=== PATIENT | female | born 1960 | race Caucasian/White ===

== ENCOUNTER → 2018-05-25 11:24 | Outpatient (CLI) | payer MEDICAID, SELFPAY ==
--- NOTE | 2018-05-25 11:23 | DI.REPORT_ITS ---
SYMPTOM/DIAGNOSIS: SCREENING, Z12.31 BILATERAL SCREENING MAMMOGRAM: Mammograms were interpreted according to the usual protocol including computer analysis with CAD system, tomosynthesis and C view imaging. Comparison is made with exams from 2011 through 2017. The breasts are composed of fatty density tissue, breast density category A. Skin folds are seen related to previous breast reduction. There are no suspicious masses or suspicious microcalcifications. There has been no significant change. IMPRESSION: Category 1-A negative mammogram. Routine screening is recommended. [facility] ASSESSMENT OF FINDINGS: Negative. Category 1. Patient will receive a letter notifying them of these results. BI-RAD category A. The breasts are almost entirely fatty.
== END ==
PROVIDERS: PCP Nurse Practitioner; Visit Provider Nurse Practitioner
DX: Z12.31 Encounter for screening mammogram for malignant neoplasm of breast (principal)
CPT/HCPCS: 77063; 77067

== ENCOUNTER → 2018-06-01 09:21 | Outpatient (CLI) | payer MEDICAID, SELFPAY ==
[2018-06-01 10:18] LABS: Abs Immature Grans 0.01 k/cumm (0.0-0.09); Absolute Basophil Count 0.03 k/cumm (0.0-0.2); Absolute Eosinophil Count 0.12 k/cumm (0.0-0.7); Absolute Lymphocyte Count 1.59 k/cumm (1.2-3.4); Absolute Monocyte Count 0.37 k/cumm (0.11-0.7); Absolute Neutrophil Count 3.39 k/cumm (1.2-6.7); Basophils % 0.5; Eosinophils % 2.2; HCT 43.1 % (36.0-46.0); Immature Grans % 0.2; Lymphocytes % 28.9; Mean Corp. HGB Concentration 32.5 g/dL (32.0-36.0); Mean Corpuscular Hemoglobin 29.9 pg (27.0-33.0); Mean Corpuscular Volume 92.1 fL (80-95); Mean Platelet Volume 10.9 fL (8.0-11.0); Monocytes % 6.7; Neutrophils % 61.5; Platelet Count 218 x1000/uL (130-400); RBC 4.68 m/cumm (4.00-5.20); RBC Distribution Width 13.4 % (11.7-14.6); White Blood Cell Count 5.51 k/cumm (4.4-10.8)
[2018-06-01 11:19] LABS: ALT 15 U/L (12-78); AST 20 U/L (15-37); Albumin 3.9 g/dL (3.4-5.0); Alkaline Phosphatase 104 U/L (46-116); Anion Gap 7.5 mmol/L (3-11); BUN 12 mg/dL (7-18); Bilirubin, Total 0.4 mg/dL (0.2-1.0); CO2 29.5 mmol/L (21.0-32.0); CREATININE 1.03 mg/dL (0.55-1.02); Chloride 103 mmol/L (98-107); Cholesterol 221 mg/dL (50-200); Estimated GFR 55.23 (mL/min/1.73m2); Glucose 118 mg/dL (70-100); HDL Cholesterol 64 mg/dL (40-60); LDL CHOLESTEROL 140 mg/dL (<100); Potassium 4.5 mmol/L (3.5-5.1); Sodium 140 mmol/L (136-145); Triglyceride 95 mg/dL (30-150)
== END ==
PROVIDERS: PCP Nurse Practitioner; Visit Provider Nurse Practitioner
DX: F32.9 Major depressive disorder, single episode, unspecified (principal); R79.9 Abnormal finding of blood chemistry, unspecified; F40.00 Agoraphobia, unspecified; Z13.220 Encounter for screening for lipoid disorders
CPT/HCPCS: 36415; 80053; 80061; 83721; 85025

== ENCOUNTER 2018-12-01 18:49 | Outpatient (CLI) | payer MEDICAID, SELFPAY ==
--- NOTE | 2018-12-01 13:00 | DI.RAD_ITS ---
SYMPTOM/DIAGNOSIS: RT SHOULDER PAIN, S/P FALL, M25.511, W19.XXXA RIGHT SHOULDER: Five views. Post surgical changes are seen in the humeral head and at the acromioclavicular joint. The glenohumeral joint is well maintained. The bones are intact and normally mineralized. The soft tissues are unremarkable. IMPRESSION: Stable post surgical changes of the right shoulder.
== END 2018-12-01 19:09 ==
PROVIDERS: PCP Nurse Practitioner; Visit Provider Nurse Practitioner
DX: M25.511 Pain in right shoulder (principal); Z98.890 Other specified postprocedural states; W19.XXXA Unspecified fall, initial encounter
CPT/HCPCS: 73030

== ENCOUNTER 2019-03-02 11:26 | Outpatient (CLI) | payer MEDICAID, SELFPAY ==
--- NOTE | 2019-03-02 11:21 | DI.RAD_ITS ---
SYMPTOM/DIAGNOSIS: PAIN RIGHT ELBOW: The bony structures are normally mineralized. There is no evidence of an effusion, fracture or dislocation. A small area of calcification adjacent to the medial epicondyle is demonstrated, likely secondary to an old injury. The study is otherwise unremarkable.
== END 2019-03-02 11:46 ==
PROVIDERS: PCP Nurse Practitioner; Visit Provider Orthopaedic Surgery
DX: M25.521 Pain in right elbow (principal)
CPT/HCPCS: 73080

== ENCOUNTER 2019-04-01 08:24 | Outpatient (CLI) | payer MEDICAID, SELFPAY ==
--- NOTE | 2019-04-01 14:43 | W.PREOPHP ---
Date of service: 04/01/19 Assessment and Plan (1) Medial epicondylitis of right elbow: Current visit: Yes Status: Acute Debridement of right elbow medial epicondyle. Details of the surgery were discussed with patient as well as risks and pertinent anatomy. All questions were answered per History of Present Illness Chief Complaint: Right elbow pain Narrative: Christiana edwards is a 58-year-old female who comes in today for a preop history and physical for a medial epicondyle debridement. She states that she has been dealing with medial elbow pain since about January, making it about 2 months of pain. She has tried a stint of prednisone taper, as well as an injection on 03/02/2019, and she did not get any relief from her symptoms from either of these modalities. She has pain whenever she is trying to lift any weight with her arm, or if she is reaching repetitive with her arm. She states that it also wakes her up from sleep. She had the same problem on the left side, which again did not respond any conservative treatment, but did respond to surgical intervention. Since he has now failed conservative treatment of the right side, she would like to move forward with medial epicondyle debridement of the right side. She is right-hand dominant. Pertinent Surgical Information Patient denies history of hypertension, CVA, [place], angina, COPD, renal or liver disorders, hepatitis, bleeding disorders, diabetes, immune or thyroid disorders. No complications from anesthesia. Review of Systems Constitutional Denies fever(s) ENT Denies dizziness and Denies sore throat Cardiovascular Denies chest pain, Denies palpitations and Denies dyspnea Respiratory Denies cough and Denies dyspnea Gastrointestinal Denies abdominal pain, Denies melena, Denies hematochezia, Denies diarrhea, Denies nausea and Denies vomiting Genitourinary Denies hematuria and Denies dysuria Neurologic Denies dizziness Endocrine Denies palpitations [facility] Medical History Migraine headache (Acute 12/04/16) Elevated cholesterol (Acute 06/02/18) Depression (Acute 12/04/16) Asthma (Acute 12/04/16) Anxiety (Acute 06/02/18) Surgical History History of epicondylectomy (Acute) Hx of carpal tunnel repair (Chronic) (R) Ankle (10/13/90) Arthroplasty of knee (08/14/10) Hysterectomy (10/13/94) Oophrectomy, Both Open Carpal Tunnel release (10/20/13) Plantar Fasciotomy (03/02/10) Reduction mammoplasty (10/13/03) Repair of inguinal hernia (01/11/13) Replacement of total knee joint (04/29/11) Rotator Cuff Repair Social History Smoking/Tobacco Use Status: Never Alcohol Intake: never Drug use: Never Do you feel safe at home: Yes Additional Social history: Lives alone Meds Home Medications Medication Instructions Recorded Confirmed Type fluticasone propion-salmeterol 2 ea INHALATION BID 12/22/12 04/01/19 History [Advair Diskus] LC D Nebulizer Set 12/25/12 04/01/19 History albuterol sulfate 1.25 mg INHALATION Q4H PRN #150 12/17/17 04/01/19 Rx vial bupropion HCl [Wellbutrin Sr] 150 mg PO BID #180 tab-cap 04/13/18 04/01/19 Rx trazodone 50 mg PO HS #90 tab-cap 04/13/18 04/01/19 Rx venlafaxine [Effexor Xr] 150 mg PO BID #180 tab-cap 04/13/18 04/01/19 Rx levalbuterol tartrate [Xopenex Hfa] 2 puff INHALATION QID PRN #1 05/14/18 04/01/19 History inhaler sumatriptan succinate [Imitrex] 100 mg PO DAILY PRN #9 tab-cap 05/14/18 04/01/19 History Allergies Allergy/AdvReac Type Severity Reaction Status Date / Time aspirin AdvReac Intermediate vomiting Verified 04/01/19 08:49 CATS Allergy Intermediate Swelling/Ed Uncoded 04/01/19 08:49 sheree ENVIROMENTAL Allergy Mild COUGHING Uncoded 04/01/19 08:49 Exam [facility] Head: normocephalic and atraumatic General nose exam: no nasal discharge Throat: uvula midline and no uvular edema Other: soft palate rises symmetrically, no erythema Eyes Conjunctivae: conjunctivae normal Sclera: sclerae normal Pupils: PERRL Resp Effort & Inspection: normal respiratory effort Auscultation: clear to auscultation bilaterally and no wheezes Cardio Rate: regular rate Rhythm: regular rhythm Heart Sounds: S1 normal, S2 normal and no murmurs GI Palpation: soft, no hepatosplenomegaly and nontender Auscultation: normal bowel sounds
--- NOTE | 2019-04-01 14:58 | HPE_ITS ---
Date of service: 04/01/19 Assessment and Plan (1) Medial epicondylitis of right elbow: Current visit: Yes Status: Acute Debridement of right elbow medial epicondyle. Details of the surgery were discussed with patient as well as risks and pertinent anatomy. All questions were answered per History of Present Illness Chief Complaint: Right elbow pain Narrative: Christiana edwards is a 58-year-old female who comes in today for a preop history and physical for a medial epicondyle debridement. She states that she has been dealing with medial elbow pain since about January, making it about 2 months of pain. She has tried a stint of prednisone taper, as well as an injection on 03/02/2019, and she did not get any relief from her symptoms from either of these modalities. She has pain whenever she is trying to lift any weight with her arm, or if she is reaching repetitive with her arm. She states that it also wakes her up from sleep. She had the same problem on the left side, which again did not respond any conservative treatment, but did respond to surgical intervention. Since he has now failed conservative treatment of the right side, she would like to move forward with medial epicondyle debridement of the right side. She is right-hand dominant. Pertinent Surgical Information Patient denies history of hypertension, CVA, [place], angina, COPD, renal or liver disorders, hepatitis, bleeding disorders, diabetes, immune or thyroid disorders. No complications from anesthesia. Review of Systems Constitutional Denies fever(s) ENT Denies dizziness and Denies sore throat Cardiovascular Denies chest pain, Denies palpitations and Denies dyspnea Respiratory Denies cough and Denies dyspnea Gastrointestinal Denies abdominal pain, Denies melena, Denies hematochezia, Denies diarrhea, Denies nausea and Denies vomiting Genitourinary Denies hematuria and Denies dysuria Neurologic Denies dizziness Endocrine Denies palpitations [facility] Medical History Migraine headache (Acute 12/04/16) Elevated cholesterol (Acute 06/02/18) Depression (Acute 12/04/16) Asthma (Acute 12/04/16) Anxiety (Acute 06/02/18) Surgical History History of epicondylectomy (Acute) Hx of carpal tunnel repair (Chronic) (R) Ankle (10/13/90) Arthroplasty of knee (08/14/10) Hysterectomy (10/13/94) Oophrectomy, Both Open Carpal Tunnel release (10/20/13) Plantar Fasciotomy (03/02/10) Reduction mammoplasty (10/13/03) Repair of inguinal hernia (01/11/13) Replacement of total knee joint (04/29/11) Rotator Cuff Repair Social History Smoking/Tobacco Use Status: Never Alcohol Intake: never Drug use: Never Do you feel safe at home: Yes Additional Social history: Lives alone Meds Home Medications Medication Instructions Recorded Confirmed Type fluticasone propion-salmeterol 2 ea INHALATION BID 12/22/12 04/01/19 History [Advair Diskus] LC D Nebulizer Set 12/25/12 04/01/19 History albuterol sulfate 1.25 mg INHALATION Q4H PRN #150 12/17/17 04/01/19 Rx vial bupropion HCl [Wellbutrin Sr] 150 mg PO BID #180 tab-cap 04/13/18 04/01/19 Rx trazodone 50 mg PO HS #90 tab-cap 04/13/18 04/01/19 Rx venlafaxine [Effexor Xr] 150 mg PO BID #180 tab-cap 04/13/18 04/01/19 Rx levalbuterol tartrate [Xopenex Hfa] 2 puff INHALATION QID PRN #1 05/14/18 04/01/19 History inhaler sumatriptan succinate [Imitrex] 100 mg PO DAILY PRN #9 tab-cap 05/14/18 04/01/19 History Allergies Allergy/AdvReac Type Severity Reaction Status Date / Time aspirin AdvReac Intermediate vomiting Verified 04/01/19 08:49 CATS Allergy Intermediate Swelling/Ed Uncoded 04/01/19 08:49 sheree ENVIROMENTAL Allergy Mild COUGHING Uncoded 04/01/19 08:49 Exam [facility] Head: normocephalic and atraumatic General nose exam: no nasal discharge Throat: uvula midline and no uvular edema Other: soft palate rises symmetrically, no erythema Eyes Conjunctivae: conjunctivae normal Sclera: sclerae normal Pupils: PERRL Resp Effort & Inspection: normal respiratory effort Auscultation: clear to auscultation bilaterally and no wheezes Cardio Rate: regular rate Rhythm: regular rhythm Heart Sounds: S1 normal, S2 normal and no murmurs GI Palpation: soft, no hepatosplenomegaly and nontender Auscultation: normal bowel sounds
== END 2019-04-01 08:44 ==
PROVIDERS: PCP Nurse Practitioner; Visit Provider Orthopaedic Surgery
DX: M77.01 Medial epicondylitis, right elbow (principal); Z01.818 Encounter for other preprocedural examination
CPT/HCPCS: NC

== ENCOUNTER 2019-04-07 11:15 | Day surgery (SDC) | payer MEDICAID, SELFPAY ==
[2019-04-01 08:50] VITALS: BP 148/93; PULSE 67; RESP 16; TEMP 36.6; O2SAT 98
[2019-04-07 11:54] VITALS: BP 145/56; PULSE 91; RESP 20; TEMP 36; O2SAT 94
[2019-04-07] MEDS: Lactated Ringers 1,000 ML 80 ML IV (12:15)
[2019-04-07] MEDS: ceFAZolin 2 GM/50 ML BAG IVPB (12:55)
--- NOTE | 2019-04-07 13:55 | W.PM.DSUDISC ---
Discharge Plan Disposition Patient Disposition: HOME Condition: Good Discharge Details Reason For Visit: Fasciotomy elbow for medial epicondylitis Attending Provider: Frankie Nicole Primary Care Provider: Donna Portillo Home Meds and New Rx's Prescriptions: New hydrocodone-acetaminophen 5-325 mg tablet 1 tab PO Q6H PRN (Reason: pain) Qty: 14 RF: 0 Continued albuterol sulfate 1.25 MG/3 ML solution for nebulization 1.25 mg Inhalation Q4H PRN Qty: 150 RF: 12 bupropion HCl [Wellbutrin SR] 150 MG tablet extended release 12 hr 150 mg PO BID Qty: 180 RF: 3 trazodone 50 MG tablet 50 mg PO HS Qty: 90 RF: 3 venlafaxine [Effexor XR] 150 MG capsule,extended release 24hr 150 mg PO BID Qty: 180 RF: 3 sumatriptan succinate [Imitrex] 100 MG tablet 100 mg PO DAILY PRNQty: 9 RF: 12 levalbuterol tartrate [Xopenex HFA] 15 GM HFA aerosol inhaler 2 puff Inhalation QID PRNQty: 1 RF: 12 fluticasone propion-salmeterol [Advair Diskus] 1 EACH blister with device 2 ea Inhalation BID RF: 0 LC D Nebulizer Set 1 EACH misc 1 ea Miscellaneous DIRECTED RF: 0 Discharge Instructions Additional Instructions: Sling for comfort. May take R arm out of sling to GENTLY move R elbow as much as your discomfort allows. Do NOT lift anything more than a coffee cup or water glass with R arm. Apply ice to inside of R elbow 4 times/day for 1 hour each time to decrease swelling and pain. May remove dressings, shower, and get incision wet on Friday. Leave incision uncovered when it is dry and sealed. Take tylenol or ibuprofen for mild pain. Take hydrocodone for breakthru pain, if needed. Follow up with in 2 weeks. Referrals: Frankie Nicole MD [ [facility] STAFF PHYSICIAN] - (f/u in 2 weeks.) Equipment/Supplies: Sling Activity:: Activity as Tolerated Remove Dressings/Wound Care:: 72 hours Shower/Bathe:: 72 hours Diet:: As Tolerated Discharge Orders Discharge Orders: Discharge Order (Routine); Ordered 04/07/19 Ordered By: Frankie Nicole DS: Diagnosis Discharge Diagnosis (1) Medial epicondylitis of right elbow: Status: Acute
[2019-04-07 14:25] VITALS: BP 125/55; PULSE 71; RESP 16; TEMP 36.3; O2SAT 95
[2019-04-07 14:30] VITALS: BP 123/57; PULSE 70; RESP 16; TEMP 36.3; O2SAT 95
[2019-04-07 14:35] VITALS: BP 137/66; PULSE 71; RESP 15; TEMP 36.3; O2SAT 95
[2019-04-07 14:50] VITALS: BP 126/69; PULSE 72; RESP 16; TEMP 36.5; O2SAT 95
[2019-04-07 15:30] VITALS: BP 131/56; PULSE 77; RESP 18; TEMP 36.6; O2SAT 94
--- NOTE | 2019-04-08 06:38 | ROE_ITS ---
REPORT OF OPERATIVE PROCEDURE DATE OF PROCEDURE April 07, 2019 PREOPERATIVE DIAGNOSIS Medial epicondylitis right. POSTOPERATIVE DIAGNOSIS Medial epicondylitis right. PROCEDURE Fasciotomy of elbow right for medial epicondylitis. SURGEON Frankie Nicole M.D. ANESTHESIA General, Oliver Streeter C.R.N.A. HOUSE DESIGNER Wanda Carter, NANI INDICATIONS This is a 58-year-old white female with a medial epicondylitis that has not responded to conservative treatment. It has been going on for over three months. She has previously had a good result from andres buffy for medial epicondylitis on the left side with resolution of symptoms. She would like to proceed as soon as possible to have the same procedure done on the right side to alleviate her pain. The ris ks and complications of the procedure were explained to the patient in detail preoperatively. PROCEDURE PERFORMED The patient was taken to the Operating Room on 04/07/2019. She was placed supine on the operating tab le and a general anesthetic was administered. A proximal tourniquet was applied to the right upper ar m. The right elbow was then prepped and draped free in the usual sterile fashion. The right upper ext remity was exsanguinated by elevation. The tourniquet was inflated to 350 mmHg. A curved incision was made centered over the medial epicondyle . The length of the incision was approximately 4 inches. Th e incision was carried down to the fascia. The subcu veins were cauterized. The ulnar nerve was iden tified and external neurolysis was performed freeing the ulnar nerve from the cubital tunnel. Vessel loop was placed around the nerve and the nerve was gently retracted posteriorly. The flexor pronator insertion on the medial epicondyle was then sharply dissected off the bone of the medial epicondyle w ith a #15-blade. Partial medial epicondylectomy was performed using an osteotome and a mallet. A 5-mm suture anchor was then placed into the medial epicondyle and counter sunk. The two sutures of #2 Fib erWire from the suture anchor were passed through the flexor pronator tendinous insertion in a horizo ntal mattress fashion. The sutures were then tied tightly securing the flexor pronator group back to the medial epicondyle. Additional sutures on the fascia anteriorly and posteriorly were performed wit h #1 Vicryl suture material. The wound margins were infiltrated with 0.5% Marcaine with epinephrine s olution. The wound was irrigated with Betadine and saline solution. The subcu was approximately with interrupted #2-0 Vicryl sutures. The skin edges were approximated with interrupted #4-0 Nylon sutures . The wound was dressed with Xeroform gauze, sterile gauze 4x4s, ABD pads, wrapped with a Kerlix band age, then wrapped with a 6-inch Solomon bandage for a light pressure dressing. The right arm was placed i n a simple sling. The tourniquet was released. There was no breakthrough bleeding. The patient's anesthesia was reversed without complications. She was discharged to the Recovery Room in good condition. The patient was later discharged home from the Day Surgery Unit when fully recovered from her general anesthesia. She was given instructions to use the sling for comfort. She may take her right arm out of the sling and bend and straighten her elbow as much as discomfort a llows. She should not lift anything more than a coffee cup or a glass of water with her right hand. S he may remove her dressings, shower and get her incision wet after 72 hours. She is to leave the inci amy uncovered when it is dry and sealed. She will take ibuprofen 800 mg q. 6 hours p.r.n. or Tylenol for mild pain. She is given prescription for breakthrough pain of hydrocodone with APAP 5/325, 1 tab let every six hours as needed. She will followup with Dr. Nicole in two weeks.
== END 2019-04-07 16:15 | disposition home or self-care (01) ==
PROVIDERS: PCP Nurse Practitioner; Visit Provider Orthopaedic Surgery
PROC: (CPT 24359; principal; 2019-04-07 13:00)
DX: M77.01 Medial epicondylitis, right elbow (principal); M25.521 Pain in right elbow; K21.9 Gastro-esophageal reflux disease without esophagitis
CPT/HCPCS: 24359; C1713; J0690; J1100; J1885; J2405; J3010; L3650

== ENCOUNTER 2019-07-07 10:28 | Outpatient (CLI) | payer MEDICAID, SELFPAY ==
--- NOTE | 2019-07-07 10:15 | DI.RAD_ITS ---
EXAM: XR SHOULDER RT COMPLETE 2+V INDICATION: pain. COMPARISON: No exams were available for comparison TECHNIQUE: 2D digital imaging was performed. FINDINGS: Anchors are affixed to the proximal humerus. The glenohumeral joint is intact. There is no evidence of a fracture dislocation.
== END 2019-07-07 10:48 ==
PROVIDERS: PCP Nurse Practitioner; Visit Provider Orthopaedic Surgery
DX: M25.511 Pain in right shoulder (principal)
CPT/HCPCS: 73030

== ENCOUNTER 2019-07-21 00:44 | Outpatient (CLI) | payer MEDICAID, SELFPAY ==
--- NOTE | 2019-07-21 09:21 | DI.MRI_ITS ---
EXAM: MR UPPER JOINT RT WO CLINICAL HISTORY: RT SHOULDER PAIN, TORN ROTATOR CUFF, M75.100., h/o fall and rotator cuff repair TECHNIQUE: Multiplanar multisequence MRI was performed. COMPARISON: XR SHOULDER RT COMPLETE 2+V from 07/07/2019 FINDINGS: There are metallic anchors in the humeral head creating mild artifact. There has been resection of the distal clavicle. There is some high signal in the distal supraspinatus tendon but no evidence of a full-thickness tear. This could in part be secondary to artifact from the metallic screws. There is mild infraspinatus tendinosis. The subscapularis, teres minor and biceps tendons are unremarkabl e. No gross labral defect is seen. There is no significant joint effusion. IMPRESSION: Supraspinatus tendinosis versus partial undersurface tear. Mild infraspinatus tendinosis.
--- NOTE | 2019-07-21 15:13 | DI.VRAD_ITS ---
PROCEDURE INFORMATION: Exam: MR Right Upper Extremity Joint Without Contrast, Shoulder Exam date and time: 07/21/2019 10:06 AM Clinical history: 59 years old, female; Patient HX: Right shoulder pain, torn rotator cuff. TECHNIQUE: Imaging protocol: MR of the Right upper extremity without contrast. Exam focused on the shoulder. COMPARISON: CR XR SHOULDER RT COMPLETE 2+V 07/07/2019 10:22 AM FINDINGS: TENDONS: Supraspinatus: Surgically repaired supraspinatus tendon. No evidence of a recurrent tear. Mild supraspinatus tendinosis. Mild bursal surface fraying of the supraspinatus tendon. Infraspinatus: Mild infraspinatus tendinosis. Subscapularis: Unremarkable. No evidence of tear. Teres minor: Unremarkable. No evidence of tear. Biceps brachii, long head: Unremarkable. No evidence of tear. LIGAMENTS: Glenohumeral: Unremarkable. Glenoid labrum: Unremarkable. No evidence of tear. Cartilage: Unremarkable. Bones/joints: Metallic anchors in the right humeral head. Apparent surgical resection of the distal right clavicle. Fluid: No joint effusion. Muscles: Minimal supraspinatus muscle atrophy. IMPRESSION: 1. Mild supraspinatus tendinosis, with mild bursal surface fraying. 2. Mild infraspinatus tendinosis. Please note that this is a preliminary report. The separate, final report is to follow. Dictated and Authenticated by: Tasha Copeland MD. Ordering:LISA David MD
== END 2019-07-21 01:04 ==
PROVIDERS: PCP Nurse Practitioner; Visit Provider Orthopaedic Surgery
DX: M25.511 Pain in right shoulder (principal); M75.100 Unspecified rotator cuff tear or rupture of unspecified shoulder, not specified as traumatic; M75.81 Other shoulder lesions, right shoulder
CPT/HCPCS: 73221

== ENCOUNTER 2019-09-16 10:38 | Inpatient (IN) | payer MEDICAID, SELFPAY ==
[2019-09-16] VITALS (57 sets, daily range): BP systolic 98–195; BP diastolic 37–94; PULSE 73–155; RESP 4–40; TEMP 36.4–37.2; O2SAT 89–100
--- NOTE | 2019-09-16 10:50 | ED.GENADUL_ITS ---
Discharge Plan Disposition Patient Disposition: [facility] INPATIENT Condition: Good Discharge Details Chief Complaint: SOB Clinical Impression: Acute asthma exacerbation, Acute dyspnea Primary Care Provider: Donna Portillo ED Provider: Capo Rios Home Meds and New Rx's Prescriptions: No Action bupropion HCl [Wellbutrin SR] 150 mg tablet sustained-release 12 hr 150 mg PO BID Qty: 180 RF: 3 trazodone 50 mg tablet 50 mg PO HS Qty: 90 RF: 3 venlafaxine [Effexor XR] 150 mg capsule,extended release 24hr 150 mg PO BID Qty: 180 RF: 3 nystatin 100,000 unit/gram cream 1 applic TP QID Qty: 60 RF: 3 prednisone 5 mg tablet See Rx Instructions PO DAILY Qty: 30 RF: 0 albuterol sulfate 1.25 MG/3 ML solution for nebulization 1.25 mg Inhalation Q4H PRN Qty: 150 RF: 12 sumatriptan succinate [Imitrex] 100 MG tablet 100 mg PO DAILY PRNQty: 9 RF: 12 levalbuterol tartrate [Xopenex HFA] 15 GM HFA aerosol inhaler 2 puff Inhalation QID PRNQty: 1 RF: 12 fluticasone propion-salmeterol [Advair Diskus] 1 EACH blister with device 2 ea Inhalation BID RF: 0 (DME) LC D Nebulizer Set 1 EACH misc 1 ea Miscellaneous DIRECTED RF: 0 Medical Decision Making This is a pleasant 59-year-old female with a past medical history of lifelong asthma who presents today for evaluation of severe shortness of breath that started last night, unresponsive to her home breathing treatments. No history of intubation, no recent admission. Physical exam demonstrates no hypoxemia but notable work of breathing. Diffuse wheezes throughout. No chest pain or chest tightness, no history of cardiac disease, no no PE red flags. No recent fever or chills. Signs and symptoms are concerning for acute asthma exacerbation. At this time she is stable and does not require intubation. She is adamantly refusing BiPAP. We will aggressively treat with magnesium, Solu- Medrol, breathing treatments. Oxygen at this time is in the low 90s, I suspect that she may require admission. 12:33 PM Chest x-ray is negative per Dr. Wright of radiology, laboratory work-up unremarkable. Troponin normal, EKG unchanged. Patient's wheezes have minimally improved, oxygenation is notably improved to the high 90s, with and without o xygen supplementation, however her work of breathing is still notable. Respiratory rate has improved to the 20s, however I do not feel that her improvement is indicative of discharge. She is tolerating BiPAP now. With her continued symptoms I do feel that she would benefit from admission. I contacted the hospitalist Dr. Ram discussed the case with her, she agrees with the assessment and plan will admit the patient to the ICU. She will place admission orders. I have extensively reviewed the treatment plan with the patient. I have addressed all patient concerns at this time. I have also discussed the plan with the admitting physician and they agree with the current assessment and plan and have agreed to assume responsibility for the patient. All parties demonstrate verbal understanding and agreement with our assessment and plan at this time. EKG 10: 48 Rate 101, intervals normal, sinus tachycardia, no significant ST elevations or depressions, no T wave inversions aside for in V1, no Q waves, no evidence of STEMI. FINDINGS: Cardiac and mediastinal contours have a normal appearance. Leads overlie the upper chest. The lungs appear clear throughout. No peribronchial thickening, infiltrate or effusion is seen. There are no visible underlying emphysematous or fibrotic changes. IMPRESSION: Negative portable chest HPI General Date/Time Provider Initiated Documentation: 09/16/19 10:41 . HPI Narrative: This is a 59-year-old female with a past medical history of asthma/reactive airway disease, who presents today for evaluation of severe shortness of breath. She arrived today via [facility] and was dropped off in the lobby but because of her severe shortness of breath was not able to make it to the ED without significant assistance. She states that her symptoms have been present since yesterday, she has been taking her home inhalers but this is not been helping. She denies any chest pain, chest heaviness, arm neck or shoulder pain. She denies any history of cardiac disease, or congestive heart failure. She denies any history of smoking whatsoever. She states that she has had asthma since she was a baby. Her symptoms are not relieved by her inhalers. She denies any recent admissions. She has never been intubated before. She denies any recent steroid use. She has no other complaints at this time. She does admit to a nonproductive cough, denies any hemoptysis or colored sputum. Denies PE risk factors such as recent long car rides, immobilization, recent surgery, prior history of DVT or PE, family history of PE or DVT, morbid obesity, exogenous estrogen and smoking, hemoptysis, history of cancer. Related Data Home Medications Medication Instructions Recorded Confirmed fluticasone propion-salmeterol 2 ea INHALATION BID 12/22/12 09/16/19 [Advair Diskus] LC D Nebulizer Set 12/25/12 07/27/19 albuterol sulfate 1.25 mg INHALATION Q4H PRN #150 12/17/17 09/16/19 vial levalbuterol tartrate [Xopenex HFA] 2 puff INHALATION QID PRN #1 05/14/18 09/16/19 inhaler sumatriptan succinate [Imitrex] 100 mg PO DAILY PRN #9 tab-cap 05/14/18 09/16/19 bupropion HCl 150 mg tablet,12 hr 150 mg PO BID #180 tab-cap 06/24/19 09/16/19 sustained-release nystatin 100,000 unit/gram topical 1 applic TP QID #60 gm 06/24/19 09/16/19 cream trazodone 50 mg tablet 50 mg PO HS #90 tab-cap 06/24/19 09/16/19 venlafaxine 150 mg 150 mg PO BID #180 tab-cap 06/24/19 09/16/19 capsule,extended release 24 hr prednisone 5 mg tablet See Rx Instructions PO DAILY #30 07/27/19 09/16/19 tab Previous Rx's Medication Instructions Recorded albuterol sulfate 1.25 mg INHALATION Q4H PRN #150 12/17/17 vial bupropion HCl 150 mg tablet,12 hr 150 mg PO BID #180 tab-cap 06/24/19 sustained-release nystatin 100,000 unit/gram topical 1 applic TP QID #60 gm 06/24/19 cream trazodone 50 mg tablet 50 mg PO HS #90 tab-cap 06/24/19 venlafaxine 150 mg 150 mg PO BID #180 tab-cap 06/24/19 capsule,extended release 24 hr prednisone 5 mg tablet See Rx Instructions PO DAILY #30 07/27/19 tab Allergies Allergy/AdvReac Type Severity Reaction Status Date / Time aspirin AdvReac Intermediate vomiting Verified 09/16/19 10:43 CATS Allergy Intermediate Swelling/Ed Uncoded 09/16/19 10:43 sheree ENVIROMENTAL Allergy Mild COUGHING Uncoded 09/16/19 10:43 General Stated Complaint: SOB ULICES: 2 Review of Systems All systems reviewed & are unremarkable except as noted in HPI and below PFS Social History (Updated 06/24/19 @ 10:18 by Mirela Horvath) Smoking/Tobacco Use Status: Never Second Hand Exposure: Yes (daughter's house - few times a week. 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 3.ENT: Atraumatic external nose and ears. Moist MM. Neck: Symmetric, trachea midline, No thyromegaly. 4.CVS: +S1/S2, No murmurs or gallops. Peripheral pulses 2+ and equal in all extremities. Brisk capillary refill in all extremities. 5.RESP: Unlabored respiratory effort, notable diffuse wheezes throughout, 1-2 word sentences. 6.GI: Soft, Nontender/Nondistended, No hepatosplenomegaly. No guarding or rebound. 7.MSK: Normocephalic/Atraumatic, Extremities w/o deformity or ttp No cyanosis or clubbing, Normal movement of all extremities. No pitting edema 8.Skin: Warm, Dry. No rashes or lesions. 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 Sensation grossly intact, no focal neurologic deficits. 10.Psych: (AAO) x3. Appropriate mood and affect Course Vital Signs Vital signs: Vital Signs Temperature 36.9 C 09/16/19 10:41 Pulse 105 H 09/16/19 10:41 Respiratory Rate 40 H 09/16/19 10:41 Blood Pressure 195/87 H 09/16/19 10:41 Pulse Oximetry 93 L 09/16/19 10:41 Temperature 36.9 C 09/16/19 10:41 Pulse 105 H 09/16/19 10:41 Respiratory Rate 40 H 09/16/19 10:44 Respiratory Effort Labored 09/16/19 10:44 Respiratory Depth Normal 09/16/19 10:44 Respiratory Pattern Tachypnea 09/16/19 10:44 Blood Pressure 195/87 H 09/16/19 10:41 Pulse Oximetry 93 L 09/16/19 10:41 Oxygen Delivery Method Room Air 09/16/19 10:41 Oxygen Flow Rate 0 09/16/19 10:41 Pain Level 0 09/16/19 10:41
[2019-09-16] MEDS: Albuterol/Ipratropium 3 ML UPD VIAL 9 ML UPD (10:54)
[2019-09-16] MEDS: methylPREDNISolone SUCC 125 MG VIAL IVP ×2 (10:55→17:16)
--- NOTE | 2019-09-16 10:59 | DI.RAD_ITS ---
EXAM: XR PORTABLE CHEST AP INDICATION: severe SOB, wheeze. COMPARISON: XR shoulder RT complete 2+V from 12/01/2018 TECHNIQUE: 2D digital imaging was performed. FINDINGS: Cardiac and mediastinal contours have a normal appearance. Leads overlie the upper chest. The lungs appear clear throughout. No peribronchial thickening, infiltrate or effusion is seen. There are no visible underlying emphysematous or fibrotic changes. IMPRESSION: Negative portable chest
[2019-09-16] MEDS: MAGNESIUM SULFATE 2 GM/50 ML BAG IVPB (11:00)
[2019-09-16 11:05] LABS: Abs Immature Grans 0.01 k/cumm (0.0-0.09); Absolute Basophil Count 0.04 k/cumm (0.0-0.2); Absolute Eosinophil Count 0.23 k/cumm (0.0-0.7); Absolute Lymphocyte Count 0.75 k/cumm (1.2-3.4); Absolute Monocyte Count 0.57 k/cumm (0.11-0.7); Absolute Neutrophil Count 6.91 k/cumm (1.2-6.7); Basophils % 0.5; Eosinophils % 2.7; HCT 42.8 % (36.0-46.0); HGB 14.1 g/dL (12.0-15.5); Immature Grans % 0.1; Lymphocytes % 8.8; Mean Corp. HGB Concentration 32.9 g/dL (32.0-36.0); Mean Corpuscular Hemoglobin 30.2 pg (27.0-33.0); Mean Corpuscular Volume 91.6 fL (80-95); Mean Platelet Volume 10.5 fL (8.0-11.0); Monocytes % 6.7; Neutrophils % 81.2; Platelet Count 246 x1000/uL (130-400); RBC 4.67 m/cumm (4.00-5.20); RBC Distribution Width 13.2 % (11.7-14.6); White Blood Cell Count 8.51 k/cumm (4.4-10.8)
[2019-09-16] MEDS: Albuterol/Ipratropium 3 ML UPD VIAL ×3 (11:05→11:55)
[2019-09-16 11:16] LABS: BE (Venous) 2.3 mmol/L (-3-3); HCO3 (Venous) 28 mmol/L (22-28); O2 Sat (Venous) 49 % (70-80); TCO2 (Venous) 26 mmol/L (22-29); pCO2 (Venous) 55 mm/Hg (34-47); pH (Venous) 7.32 (7.32-7.43); pO2 (Venous) 28 mm/Hg (28-44)
[2019-09-16] MEDS: LORazepam 2 MG/ML VIAL 0.5 MG IVP (11:20)
[2019-09-16 11:22] LABS: PTT Activated 25.6 sec (21.0-31.4); Prothrombin Time 10.4 sec (9.3-11.0)
[2019-09-16 11:31] LABS: ALT 20 U/L (14-59); AST 18 U/L (15-37); Albumin 4.1 g/dL (3.4-5.0); Alkaline Phosphatase 108 U/L (46-116); Anion Gap 6.6 mmol/L (3-11); BUN 10 mg/dL (7-18); Bilirubin, Total 0.4 mg/dL (0.2-1.0); CO2 30.4 mmol/L (21.0-32.0); CREATININE 0.89 mg/dL (0.55-1.02); Calcium 8.9 mg/dL (8.5-10.1); Chloride 103 mmol/L (98-107); Glucose 145 mg/dL (74-106); NT-proBNP 429 pg/mL (<300); Potassium 4.1 mmol/L (3.5-5.1); Sodium 140 mmol/L (136-145); Troponin I < 0.05 ng/Ml (<0.06)
[2019-09-16] MEDS: Budesonide 0.5 MG/2 ML UPD VIAL UPD ×2 (12:27→20:05)
--- NOTE | 2019-09-16 12:40 | W.PM.HP.N ---
Date of service: 09/16/19 Time of Service: 12:40 Assessment and Plan Assessment and plan (1) Acute asthma exacerbation: Status: Acute Assessment and plan: Admit to ICU on BiPAP. Continue treatment with high dose systemic steroids, scheduled and prn nebulizer treatments, inhaled corticosteroids (add pulmincort to the symbicort). Obtain sputum sample if possible. Procalcitonin negative and viral etiology is suspected. Flu negative. Check RSV. Empirically start doxycycline/ceftriaxone because of the severity of the exacerbation. (2) Anxiety: Status: Chronic Assessment and plan: will write for PRN ativan. Continue home therapy (3) Depression: Status: Chronic Assessment and plan: Continue home therapy (4) Gastroesophageal reflux disease: Status: Suspected Assessment and plan: The patient denies this, but it is in her history. Will cover with PPI for ppx. (5) Borderline diabetes: Status: Chronic Assessment and plan: Check A1C. May require SSI coverage. (6) DVT prophylaxis: Status: Acute Assessment and plan: lovenox (7) Discharge planning issues: Status: Acute Assessment and plan: Full code Admit to ICU. Total Critical Care Time 45 minutes. History of Present Illness History of Present Illness Chief Complaint: shortness of breath Narrative: Ms Soriano is a 59 year old female with PMHx of asthma (never requiring intubation), anxiety, depression, and question of borderline diabetes, who was escorted to [facility] ED today after being found in the hospital hallway by our RT gasping for air and wheezing. The patient has been short of breath, wheezing, and has had a nonproductive cough since Friday (4 days ago), but it got a lot worse last night. Her 2 year old granddaughter has a URI as well. On arrival to ER, her O2 sat was 91% on RA. ABG was unobtainable; VBG showed a pH of 7.32. She initially refused BiPAP, was treated with solumedrol, magnesium sulfate, and nebs, but continued to be in respiratory distress. She finally agreed to be placed on BiPAP. She now states she feels a little bit better. Denies dizziness, chest pain, sore throat, runny nose, nausea. Our interview is somewhat limited by the patient being on BiPAP, but it needs to be noted that she was able to speak in full sentences while on BiPAP. Review of Systems Narrative: 12 systems reviewed - pertinent positives and negatives as per HPI. [facility] Medical History Anxiety (Acute 06/02/18) Asthma (Acute 12/04/16) Depression (Acute 12/04/16) Elevated cholesterol (Acute 06/02/18) Migraine headache (Acute 12/04/16) Surgical History (R) Ankle (10/13/90) Arthroplasty of knee (08/14/10) Right knee. W/Patellar Chondroplasty History of epicondylectomy (Acute) 03/18/18 Left - partial medial epicondylectomy and ulnar decompression of the cubital tunnel. Hx of carpal tunnel repair (Chronic) right Hysterectomy (10/13/94) Medial epicondylitis of right elbow (Chronic) Status post debridement on 04/07/2019 Oophrectomy, Both 1989 & 1997 Open Carpal Tunnel release (10/20/13) Bilateral Plantar Fasciotomy (03/02/10) Right Pt states left foot Reduction mammoplasty (10/13/03) Repair of inguinal hernia (01/11/13) Right Replacement of total knee joint (04/29/11) Right Rotator Cuff Repair Bilateral-R:2006 L:2008 Family History (Updated 09/16/19 @ 13:52 by Maria Elena Ram MD) Other Adopted Social History Smoking/Tobacco Use Status: Never Second Hand Exposure: Yes (daughter's house - few times a week. 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 Pets and animals: Yes (Pug - [place]) Pets and animals: dog(s) Current gender identity: female Do you feel safe at home: Yes Do you feel safe in your relationship?: Yes Additional Social history: Lives alone Meds Home Medications and Allergies Home Medications Medication Instructions Recorded Confirmed Type fluticasone propion-salmeterol 2 ea INHALATION BID 12/22/12 09/16/19 History [Advair Diskus] LC D Nebulizer Set 12/25/12 07/27/19 History albuterol sulfate 1.25 mg INHALATION Q4H PRN #150 12/17/17 09/16/19 Rx vial levalbuterol tartrate [Xopenex HFA] 2 puff INHALATION QID PRN #1 05/14/18 09/16/19 History inhaler bupropion HCl 150 mg tablet,12 hr 150 mg PO BID #180 tab-cap 06/24/19 09/16/19 Rx sustained-release trazodone 50 mg tablet 50 mg PO HS #90 tab-cap 06/24/19 09/16/19 Rx venlafaxine 150 mg 150 mg PO BID #180 tab-cap 06/24/19 09/16/19 Rx capsule,extended release 24 hr Allergies Allergy/AdvReac Type Severity Reaction Status Date / Time aspirin AdvReac Intermediate vomiting Verified 09/16/19 10:43 CATS Allergy Intermediate Swelling/Ed Uncoded 09/16/19 10:43 sheree ENVIROMENTAL Allergy Mild COUGHING Uncoded 09/16/19 10:43 Exam Narrative Exam Narrative: General: Very pleasant, anxious middle-aged female, on BiPAP, does not appear to be working to breathe by the time that I saw her, A&Ox3, able to complete sentences on BiPAP Neurological: A&Ox3, no focal deficits Psychiatric: anxious Skin: visible skin intact, but dry HEENT: Atraumatic, normocephalic, EOMI, dry MM, could not examine oropharynx given BiPAP mask, no submandibular or cervical lymphadenopathy, slight goiter, no JVD Cardiovascular: RRR, no m/r/g Lungs: diffuse wheezing on expiration B Gastrointestinal: abdomen is soft, nontender, nondistended Genitourinary: deferred Extremities: no e/c/c BLE's Results Imaging Additional studies: CXR: Negative portable chest EKG: sinus tach, HR 101, no acute ischemia, nonspecific ST-T changes Labs Result diagrams: 09/16/19 10:55 09/16/19 10:55 Labs: Laboratory Results - last 24 hr 09/16/19 09/16/19 09/16/19 10:55 10:55 10:55 WBC 8.51 RBC 4.67 Hgb 14.1 Hct 42.8 MCV 91.6 MCH 30.2 MCHC 32.9 RDW 13.2 Plt Count 246 MPV 10.5 Immature Gran % 0.1 Neutrophils % 81.2 Lymphocytes % 8.8 Monocytes % 6.7 Eosinophils % 2.7 Basophils % 0.5 Absolute Neutrophils 6.91 H Absolute Lymphocytes 0.75 L Absolute Monocytes 0.57 Absolute Eosinophils 0.23 Absolute Basophils 0.04 PT 10.4 INR 1.0 APTT 25.6 VBG pH VBG pCO2 VBG pO2 VBG HCO3 VBG Total CO2 VBG O2 Saturation VBG Base Excess Sodium 140 Potassium 4.1 Chloride 103 Carbon Dioxide 30.4 Anion Gap 6.6 BUN 10 Creatinine 0.89 Estimated GFR/1.73 m2 >= 60.00 Glucose 145 H Calcium 8.9 Total Bilirubin 0.4 AST 18 ALT 20 Alkaline Phosphatase 108 Troponin I < 0.05 NT-Pro-B Natriuret Pep 429 Total Protein 8.0 Albumin 4.1 09/16/19 11:10 WBC RBC Hgb Hct MCV MCH MCHC RDW Plt Count MPV Immature Gran % Neutrophils % Lymphocytes % Monocytes % Eosinophils % Basophils % Absolute Neutrophils Absolute Lymphocytes Absolute Monocytes Absolute Eosinophils Absolute Basophils PT INR APTT VBG pH 7.32 VBG pCO2 55 H VBG pO2 28 VBG HCO3 28 VBG Total CO2 26 VBG O2 Saturation 49 L VBG Base Excess 2.3 Sodium Potassium Chloride Carbon Dioxide Anion Gap BUN Creatinine Estimated GFR/1.73 m2 Glucose Calcium Total Bilirubin AST ALT Alkaline Phosphatase Troponin I NT-Pro-B Natriuret Pep Total Protein Albumin Last Vital Signs Temp 36.9 C 09/16/19 10:41 Pulse 111 H 09/16/19 12:30 Resp 22 09/16/19 12:31 BP 112/69 09/16/19 12:30 Pulse Ox 95 09/16/19 12:31
[2019-09-16 12:46] LABS: Lactate 3.6 mmol/L (0.6-1.4)
[2019-09-16 13:18] LABS: Procalcitonin < 0.1 ng/mL
[2019-09-16] MEDS: Benzonatate 200 MG CAP PO ×2 (13:55→20:05)
[2019-09-16] MEDS: Enoxaparin 40 MG/0.4 ML SYR SC (13:56)
[2019-09-16] MEDS: cefTRIAXone 1 GM/50 ML BAG IVPB (14:30)
[2019-09-16 14:36] LABS: FREE T4 0.78 ng/dL (0.76-1.46); TSH 1.36 uIU/mL (0.36-3.74)
[2019-09-16 14:37] LABS: Hemoglobin A1C 6.4 % (4.5-6.2)
[2019-09-16] MEDS: Pantoprazole 40 MG VIAL IVP (15:31)
[2019-09-16] MEDS: Normal Saline Flush 10 ML SYR IVP (15:33)
[2019-09-16 16:10] LABS: Lactate 3.9 mmol/L (0.6-1.4)
[2019-09-16] MEDS: Normal Saline 1,000 ML 1000 ML IV (16:40)
[2019-09-16] MEDS: DOXYCYCLINE 100 MG in Normal Saline 100 ML IVPB (17:41)
[2019-09-16] MEDS: Albuterol/Ipratropium 3 ML UPD VIAL UPD (17:47)
[2019-09-16] MEDS: Venlafaxine 150 MG CAPCR PO (20:05)
[2019-09-16] MEDS: buPROPion-CR 150 MG TABCR PO (20:05)
[2019-09-16 20:27] LABS: Lactate 4.6 mmol/L (0.6-1.4)
[2019-09-16] MEDS: Insulin Aspart 300 UNITS/3 ML PEN SC (20:47)
[2019-09-16] MEDS: traZODone 50 MG TAB PO (21:02)
[2019-09-16 21:40] LABS: Anion Gap 14.3 mmol/L (3-11); BUN 10 mg/dL (7-18); CO2 21.7 mmol/L (21.0-32.0); CREATININE 1.12 mg/dL (0.55-1.02); Calcium 8.3 mg/dL (8.5-10.1); Chloride 104 mmol/L (98-107); Estimated GFR 49.97 (mL/min/1.73m2); Glucose 259 mg/dL (74-106); Potassium 3.8 mmol/L (3.5-5.1); Sodium 140 mmol/L (136-145)
[2019-09-16] MEDS: Normal Saline 1,000 ML 150 ML IV (23:10)
[2019-09-17] VITALS (78 sets, daily range): BP systolic 99–158; BP diastolic 43–80; PULSE 65–110; RESP 4–30; TEMP 36.1–37.2; O2SAT 89–100
[2019-09-17] MEDS: methylPREDNISolone SUCC 125 MG VIAL IVP ×4 (00:47→17:50)
[2019-09-17] MEDS: Albuterol/Ipratropium 3 ML UPD VIAL UPD ×5 (00:47→22:15)
[2019-09-17] MEDS: DOXYCYCLINE 100 MG in Normal Saline 100 ML IVPB ×2 (05:17→17:52)
[2019-09-17] MEDS: Normal Saline 1,000 ML 150 ML IV (06:32)
[2019-09-17 07:36] LABS: Lactate 1.8 mmol/L (0.6-1.4)
[2019-09-17 07:38] LABS: Abs Immature Grans 0.02 k/cumm (0.0-0.09); Absolute Eosinophil Count 0.01 k/cumm (0.0-0.7); Absolute Lymphocyte Count 0.43 k/cumm (1.2-3.4); Absolute Monocyte Count 0.24 k/cumm (0.11-0.7); Eosinophils % 0.1; HCT 38.3 % (36.0-46.0); HGB 12.7 g/dL (12.0-15.5); Immature Grans % 0.2; Lymphocytes % 3.6; Mean Corp. HGB Concentration 33.2 g/dL (32.0-36.0); Mean Corpuscular Hemoglobin 30.5 pg (27.0-33.0); Mean Corpuscular Volume 92.1 fL (80-95); Mean Platelet Volume 10.7 fL (8.0-11.0); Neutrophils % 94.1; Platelet Count 202 x1000/uL (130-400); RBC 4.16 m/cumm (4.00-5.20); RBC Distribution Width 13.2 % (11.7-14.6)
[2019-09-17 07:39] LABS: Absolute Neutrophil Count 11.29 k/cumm (1.2-6.7)
[2019-09-17 08:00] LABS: BUN 9 mg/dL (7-18); CREATININE 0.82 mg/dL (0.55-1.02); Calcium 8.4 mg/dL (8.5-10.1); Chloride 108 mmol/L (98-107); Glucose 246 mg/dL (74-106); Magnesium 2.3 mg/dL (1.8-2.4); Potassium 3.7 mmol/L (3.5-5.1); Sodium 142 mmol/L (136-145)
[2019-09-17] MEDS: Insulin Aspart 300 UNITS/3 ML PEN SC ×4 (08:04→22:12)
[2019-09-17] MEDS: buPROPion-CR 150 MG TABCR PO ×2 (08:04→20:10)
[2019-09-17] MEDS: Benzonatate 200 MG CAP PO ×3 (08:04→20:10)
[2019-09-17] MEDS: Venlafaxine 150 MG CAPCR PO ×2 (08:04→20:10)
[2019-09-17] MEDS: Budesonide 0.5 MG/2 ML UPD VIAL UPD ×2 (08:26→20:10)
--- NOTE | 2019-09-17 08:36 | PGE_ITS ---
Date of Service Date of service: 09/17/19 Time of Service: 12:25 Assessment and Plan Assessment and plan (1) Acute asthma exacerbation: Status: Acute Assessment and plan: Improved. Continue high dose systemic steroids, scheduled and prn nebulizer treatments, LABA, inhaled corticosteroids. Procalcitonin negative, but doxycycline/ceftriaxone are to be continued due to severity of illness. Currently on abx day 2/5. (2) Lactic acidosis: Status: Acute Assessment and plan: Improved. Combination of severity of respiratory distress/asthma exacerbation, response to bronchodilators, and dehydration. Monitor. (3) Anxiety: Status: Chronic Assessment and plan: Controlled; PRN ativan ordered. Continue home therapy (4) Depression: Status: Chronic Assessment and plan: Continue home therapy (5) Gastroesophageal reflux disease: Status: Suspected Assessment and plan: The patient denies this, but it is in the chart. Continue PPI (6) Borderline diabetes: Status: Chronic Assessment and plan: With steroid induced hyperglycemia. Continue SSI, carb consistent diet. Consult simulation educator. (7) Thrush, oral: Status: Acute Assessment and plan: offer nystatin (8) DVT prophylaxis: Status: Acute Assessment and plan: lovenox (9) Discharge planning issues: Status: Acute Assessment and plan: Full code Keep in CU. Subjective Subjective Interval history since last seen: Off bipap since 6 am. On Room air. SOB is better, but still quite wheezy, and cough is still nonproductive. Denies dizziness, chest pain, nausea, vomiting. Asks us to call her daughter to let her know that she needs to stay in the hospital - afraid of daughter's reaction. Exam Narrative Exam Narrative: General: Very pleasant, sitting up in a chair, on room air, A&Ox3 HEENT: EOMI, dry MM, +thrush Cardiovascular: RRR, no m/r/g Lungs: diffuse wheezing on expiration B - slightly better than yesterday Gastrointestinal: abdomen is soft, nontender, nondistended Extremities: no e/c/c BLE's Objective Objective Clinical Data: Abnormal lab results 09/16/19 09/16/19 09/16/19 Range/Units 10:55 10:55 10:55 WBC (4.4-10.8) k/cumm Absolute Neutrophils 6.91 H (1.2-6.7) k/cumm Absolute Lymphocytes 0.75 L (1.2-3.4) k/cumm VBG pCO2 (34-47) mm/Hg VBG O2 Saturation (70-80) % Chloride (98-107) mmol/L Anion Gap (3-11) mmol/L Creatinine (0.55-1.02) mg/dL Glucose 145 H (74-106) mg/dL Hemoglobin A1c 6.4 H (4.5-6.2) % Lactate (0.6-1.4) mmol/L Calcium (8.5-10.1) mg/dL 09/16/19 09/16/19 09/16/19 Range/Units 11:10 12:39 15:45 WBC (4.4-10.8) k/cumm Absolute Neutrophils (1.2-6.7) k/cumm Absolute Lymphocytes (1.2-3.4) k/cumm VBG pCO2 55 H (34-47) mm/Hg VBG O2 Saturation 49 L (70-80) % Chloride (98-107) mmol/L Anion Gap (3-11) mmol/L Creatinine (0.55-1.02) mg/dL Glucose (74-106) mg/dL Hemoglobin A1c (4.5-6.2) % Lactate 3.6 H* 3.9 H* (0.6-1.4) mmol/L Calcium (8.5-10.1) mg/dL 09/16/19 09/16/19 09/17/19 Range/Units 20:13 20:13 07:25 WBC (4.4-10.8) k/cumm Absolute Neutrophils (1.2-6.7) k/cumm Absolute Lymphocytes (1.2-3.4) k/cumm VBG pCO2 (34-47) mm/Hg VBG O2 Saturation (70-80) % Chloride 108 H (98-107) mmol/L Anion Gap 14.3 H (3-11) mmol/L Creatinine 1.12 H (0.55-1.02) mg/dL Glucose 259 H D 246 H (74-106) mg/dL Hemoglobin A1c (4.5-6.2) % Lactate 4.6 H* (0.6-1.4) mmol/L Calcium 8.3 L 8.4 L (8.5-10.1) mg/dL 09/17/19 09/17/19 Range/Units 07:25 07:29 WBC 12.00 H D (4.4-10.8) k/cumm Absolute Neutrophils 11.29 H (1.2-6.7) k/cumm Absolute Lymphocytes 0.43 L (1.2-3.4) k/cumm VBG pCO2 (34-47) mm/Hg VBG O2 Saturation (70-80) % Chloride (98-107) mmol/L Anion Gap (3-11) mmol/L Creatinine (0.55-1.02) mg/dL Glucose (74-106) mg/dL Hemoglobin A1c (4.5-6.2) % Lactate 1.8 H (0.6-1.4) mmol/L Calcium (8.5-10.1) mg/dL Vital Signs Temperature 36.4 C L 09/17/19 08:14 Temperature Source Temporal Artery Scan 09/17/19 08:14 Pulse 92 H 09/17/19 08:14 Pulse 81 09/17/19 06:00 Respiratory Rate 18 09/17/19 08:14 Respiratory Effort 09/17/19 08:14 Respiratory Depth Normal 09/17/19 08:14 Respiratory Pattern Normal 09/17/19 08:14 Blood Pressure 119/76 09/17/19 08:14 Blood Pressure Mean 90 09/17/19 08:14 Blood Pressure Position Sitting 09/17/19 08:14 Pulse Oximetry 95 09/17/19 08:14 Oxygen Delivery Method Nasal Cannula 09/17/19 08:14 Oxygen Flow Rate 1 09/17/19 08:14 Fraction of Inspired Oxygen (FIO2) 26 09/17/19 08:14 Pain Level 0 09/17/19 08:14 Intake & Output 09/16/19 09/16/19 09/17/19 11:59 23:59 11:59 Intake Total 1440 / 1440 1000 / 1000 Output Total 550 / 550 600 / 600 Balance 890 / 890 400 / 400 Weight 113.398 kg 113.398 kg 113.398 kg Intake: IV 1200 / 1200 1000 / 1000 Oral 240 / 240 Output: Urine 550 / 550 600 / 600 Other: Urine Color Yellow Yellow Urine Appearance Clear Clear Urine Odor Normal None Voiding Methods Bedside Commode Bedside Commode Laboratory Results WBC 12.00 k/cumm (4.4-10.8) H D 09/17/19 07:29 RBC 4.16 m/cumm (4.00-5.20) 09/17/19 07:29 Hgb 12.7 g/dL (12.0-15.5) 09/17/19 07:29 Hct 38.3 % (36.0-46.0) 09/17/19 07:29 MCV 92.1 fL (80-95) 09/17/19 07:29 MCH 30.5 pg (27.0-33.0) 09/17/19 07:29 MCHC 33.2 g/dL (32.0-36.0) 09/17/19 07:29 RDW 13.2 % (11.7-14.6) 09/17/19 07:29 Plt Count 202 x1000/uL (130-400) 09/17/19 07:29 MPV 10.7 fL (8.0-11.0) 09/17/19 07:29 Immature Gran % 0.2 09/17/19 07:29 Neutrophils % 94.1 09/17/19 07:29 Lymphocytes % 3.6 09/17/19 07:29 Monocytes % 2.0 09/17/19 07:29 Eosinophils % 0.1 09/17/19 07:29 Basophils % 0.0 09/17/19 07:29 Absolute Neutrophils 11.29 k/cumm (1.2-6.7) H 09/17/19 07:29 Absolute Lymphocytes 0.43 k/cumm (1.2-3.4) L 09/17/19 07:29 Absolute Monocytes 0.24 k/cumm (0.11-0.7) 09/17/19 07:29 Absolute Eosinophils 0.01 k/cumm (0.0-0.7) 09/17/19 07:29 Absolute Basophils 0.00 k/cumm (0.0-0.2) 09/17/19 07:29 PT 10.4 sec (9.3-11.0) 09/16/19 10:55 INR 1.0 (0.9-1.1) 09/16/19 10:55 APTT 25.6 sec (21.0-31.4) 09/16/19 10:55 VBG pH 7.32 (7.32-7.43) 09/16/19 11:10 VBG pCO2 55 mm/Hg (34-47) H 09/16/19 11:10 VBG pO2 28 mm/Hg (28-44) 09/16/19 11:10 VBG HCO3 28 mmol/L (22-28) 09/16/19 11:10 VBG Total CO2 26 mmol/L (22-29) 09/16/19 11:10 VBG O2 Saturation 49 % (70-80) L 09/16/19 11:10 VBG Base Excess 2.3 mmol/L (-3-3) 09/16/19 11:10 Sodium 142 mmol/L (136-145) 09/17/19 07:25 Potassium 3.7 mmol/L (3.5-5.1) 09/17/19 07:25 Chloride 108 mmol/L (98-107) H 09/17/19 07:25 Carbon Dioxide 25.0 mmol/L (21.0-32.0) 09/17/19 07:25 Anion Gap 9.0 mmol/L (3-11) 09/17/19 07:25 BUN 9 mg/dL (7-18) 09/17/19 07:25 Creatinine 0.82 mg/dL (0.55-1.02) 09/17/19 07:25 Estimated GFR/1.73 m2 >= 60.00 (mL/min/1.73m2) 09/17/19 07:25 Glucose 246 mg/dL (74-106) H 09/17/19 07:25 Hemoglobin A1c 6.4 % (4.5-6.2) H 09/16/19 10:55 Lactate 1.8 mmol/L (0.6-1.4) H 09/17/19 07:25 Calcium 8.4 mg/dL (8.5-10.1) L 09/17/19 07:25 Magnesium 2.3 mg/dL (1.8-2.4) 09/17/19 07:25 Total Bilirubin 0.4 mg/dL (0.2-1.0) 09/16/19 10:55 AST 18 U/L (15-37) 09/16/19 10:55 ALT 20 U/L (14-59) 09/16/19 10:55 Alkaline Phosphatase 108 U/L (46-116) 09/16/19 10:55 Troponin I < 0.05 ng/Ml (<0.06) 09/16/19 10:55 NT-Pro-B Natriuret Pep 429 pg/mL (<300) 09/16/19 10:55 Total Protein 8.0 g/dL (6.4-8.2) 09/16/19 10:55 Albumin 4.1 g/dL (3.4-5.0) 09/16/19 10:55 Procalcitonin < 0.1 ng/mL 09/16/19 12:39 TSH 1.36 uIU/mL (0.36-3.74) 09/16/19 12:40 Free T4 0.78 ng/dL (0.76-1.46) 09/16/19 12:40
--- NOTE | 2019-09-17 08:52 | PDOC.CMIN ---
- If Service Date Differs Date of service: 09/17/19 Time of Service: 08:52 Care Management Initial Assess REASON FOR HOSPITALIZATION:: Asthma exacerbation PAST MEDICAL HISTORY/PAST SURGICAL HISTORY:: Medical History: Anxiety (Acute 06/02/18), Asthma (Acute 12/04/16), Depression (Acute 12/04/16), Elevated cholesterol (Acute 06/02/18), and. Migraine headache (Acute 12/04/16). Surgical History: (R) Ankle (10/13/90), Arthroplasty of knee (08/14/10) - Right knee. W/Patellar Chondroplasty, History of epicondylectomy (Acute) -. 03/18/18 Left - partial medial epicondylectomy and ulnar decompression of the cubital tunnel, Hx of carpal tunnel repair (Chronic) - right,. Hysterectomy (10/13/94), Medial epicondylitis of right elbow (Chronic) -. Status post debridement on 04/07/2019, Oophrectomy, Both - 1989 & 1997,. Open Carpal Tunnel release (10/20/13) - Bilateral, Plantar Fasciotomy (03/02/10) - Right - Pt states left foot, Reduction mammoplasty (10/13/03),. Repair of inguinal hernia (01/11/13) - Right, Replacement of total knee joint (04/29/11) - Right, and Rotator Cuff Repair - Bilateral-R:2006 L:2007. PREVIOUS FUNCTIONAL STATUS/SOCIAL/FAMILY SUPPORTS:: Christiana lives alone in [facility] with her pug. She has three grown children, two of whom live locally and are supportive of her. Christiana reports she enjoys watching her 2 year old granddaughter, going to [employer] [place] and to the [employer] in the summer. Christiana is disabled but is independent with ADL's. CURRENT FUNCTIONAL STATUS:: Christiana is sitting in a chair watching television when CM comes to meet with her. She is pleasant and easily engages in conversation. She reports she had similar symptoms in November of this year. She states she is feeling better and is looking forward to returning home soon. ADVANCE DIRECTIVES:: None on file, but a copy is provided to patient per her request. Has patient been provided with information about the portal?: Yes Did the patient sign up for the portal?: No (Not interested) CODE STATUS:: Full Code INSURANCE COVERAGE / FINANCIAL ISSUES:: Medicaid. CURRENT HOME/COMMUNITY SERVICES/EQUIPMENT:: Christiana reports she sees Lobito Floyd for therapy in the community and she has a nebulizer at home. PRIMARY CARE PHYSICIAN:: Donna Portillo aprn ([facility]) POTENTIAL DISCHARGE NEEDS:: Follow-up appointment with primary care physician. Further evaluation by Respiratory Therapy for DME/medication needs. PATIENT/FAMILY EDUCATION NEEDS:: Discharge plan, limitations, and follow-up plan of care, including Ask Me Three and self-management. ANTICIPATED BARRIERS TO DISCHARGE:: None. TRANSPORTATION:: Christiana will be transported home by family via private vehicle. PLAN:: Christiana will be discharged home when medically cleared by provider. She will follow-up with her PCP and treatment plan as recommended. She will be transported home by family via private vehicle when ready. CM continues to follow and support discharge planning considerations.
[2019-09-17] MEDS: Budesonide/Formoterol 160/4.5 6 GM 60 PUFF INH IH ×2 (11:42→20:17)
--- NOTE | 2019-09-17 12:36 | PHARADMIT ---
Admission Pharmacy Clinical Review ASTHMA EXACERBATION Code Status Full Code Current Weight Wgt-113.4 kg Renally Cleared and Narrow Therapeutic Index Meds CrCl~ 64.5 mL/min Meds-OK QTc Value / Action Taken qtC-454 BP Control, Fever BP-147/72 Tmax-37.2C Electrolytes reviewed Na-142 K+3.7 Mag-2.3 DVT Prophylaxis Lovenox-40mg Opiate Usage / Scheduled Bowel Regimen Ordered Harpal-AC, Yes Plt/SCr for Heparin / Enoxaparin Plts-202 SCr-0.82 INR for Warfarin inr-1.0 H/H stable, WBC/Bands H&H- 12.7/38.3 WBC- 12.00 Antibiotic appropriateness Rocephin Doxycyclline Cultures and Sensitivities Flu-Neg Surgical ABX d/c within 24 hr NA DM control / Insulin Dosing BG-246 HgA1c- 6.4 Aspart Heart Failure (Check EF%) (KOLBY's, B-Block, Diuretics) NONE IV to PO Switch No Home Meds Reviewed Yes Home Meds Not Ordered Imitrex, Advair Comments
[2019-09-17] MEDS: MAGNESIUM SULFATE 2 GM/50 ML BAG IVPB (12:41)
[2019-09-17] MEDS: Enoxaparin 40 MG/0.4 ML SYR SC (13:49)
[2019-09-17] MEDS: Nystatin 500000 UNITS/5 ML SUSP 5ML CUP PO (13:50)
[2019-09-17] MEDS: Pantoprazole 40 MG VIAL IVP (13:56)
[2019-09-17] MEDS: cefTRIAXone 1 GM/50 ML BAG IVPB (14:06)
--- NOTE | 2019-09-17 15:14 | CHAPLAIN ---
Christiana was just taking some not-good tasting medicine for thrush, when I visited. She was open to conversation and told me that she is missing her pug, Branford, at home. Her granddaughter is especially fond of Conrado. Christiana said her daughter and son in law are very helpful and supportive, but no one else, those are the two I can rely on. She sometimes watches her granddaughter on Fridays. She is missing being home with Branford and seeing her granddaughter.
[2019-09-17] MEDS: Normal Saline Flush 10 ML SYR IVP (17:55)
[2019-09-17] MEDS: traZODone 50 MG TAB PO (22:13)
[2019-09-17 22:18] LABS: Osmolality Serum 290 mOsm/kg (275-295)
[2019-09-18] VITALS (18 sets, daily range): BP systolic 105–134; BP diastolic 52–83; PULSE 75–89; RESP 4–24; TEMP 36.1–36.7; O2SAT 88–96
[2019-09-18] MEDS: Normal Saline Flush 10 ML SYR IVP ×2 (02:02→13:10)
[2019-09-18] MEDS: methylPREDNISolone SUCC 125 MG VIAL IVP ×2 (02:02→05:32)
[2019-09-18] MEDS: DOXYCYCLINE 100 MG in Normal Saline 100 ML IVPB (04:25)
[2019-09-18] MEDS: Albuterol/Ipratropium 3 ML UPD VIAL UPD ×5 (05:32→22:34)
[2019-09-18 07:11] LABS: Abs Immature Grans 0.09 k/cumm (0.0-0.09); Absolute Lymphocyte Count 0.52 k/cumm (1.2-3.4); HCT 39.2 % (36.0-46.0); HGB 12.8 g/dL (12.0-15.5); Immature Grans % 0.4; Lymphocytes % 2.6; Mean Corp. HGB Concentration 32.7 g/dL (32.0-36.0); Mean Corpuscular Hemoglobin 30.3 pg (27.0-33.0); Mean Corpuscular Volume 92.9 fL (80-95); Mean Platelet Volume 10.9 fL (8.0-11.0); Monocytes % 2.6; Neutrophils % 94.4; Platelet Count 228 x1000/uL (130-400); RBC 4.22 m/cumm (4.00-5.20); RBC Distribution Width 13.6 % (11.7-14.6); White Blood Cell Count 20.15 k/cumm (4.4-10.8)
[2019-09-18 07:17] LABS: Absolute Monocyte Count 0.52 k/cumm (0.11-0.7); Absolute Neutrophil Count 19.02 k/cumm (1.2-6.7); Lactate 2.7 mmol/L (0.6-1.4)
[2019-09-18 07:28] LABS: Anion Gap 10.3 mmol/L (3-11); BUN 19 mg/dL (7-18); CO2 26.7 mmol/L (21.0-32.0); CREATININE 0.98 mg/dL (0.55-1.02); Calcium 8.3 mg/dL (8.5-10.1); Chloride 106 mmol/L (98-107); Estimated GFR 58.29 (mL/min/1.73m2); Glucose 241 mg/dL (74-106); Magnesium 2.4 mg/dL (1.8-2.4); Potassium 3.8 mmol/L (3.5-5.1); Sodium 143 mmol/L (136-145)
[2019-09-18] MEDS: Budesonide/Formoterol 160/4.5 6 GM 60 PUFF INH IH ×2 (07:56→20:17)
[2019-09-18] MEDS: Benzonatate 200 MG CAP PO ×3 (08:42→20:14)
[2019-09-18] MEDS: buPROPion-CR 150 MG TABCR PO ×2 (08:42→20:14)
[2019-09-18] MEDS: Venlafaxine 150 MG CAPCR PO ×2 (08:43→20:13)
[2019-09-18] MEDS: Insulin Aspart 300 UNITS/3 ML PEN SC ×3 (08:44→16:58)
--- NOTE | 2019-09-18 08:51 | W.PM.PROGNOT ---
Date of Service Date of service: 09/18/19 Time of Service: 08:51 Assessment and Plan Assessment and plan (1) Acute asthma exacerbation: Status: Acute Assessment and plan: steadily improving. will decrease her solumedrol to 60 mg IV q6hr, dc her Pulmocort, continue scheduled doses of DuoNeb along w/ prn albuterol, and transfer to med/surg if a bed is available; tomorrow will transition to oral prednisone and hopefully will be ready for discharge in next 1 to 2 days Qualifiers: Asthma persistence: unspecified Asthma severity: severe Qualified Code(s): J45.901 - Unspecified asthma with (acute) exacerbation (2) Thrush, oral: Status: Acute Assessment and plan: improving. no dysphagia or odynophagia. continue nystatin swich and swallow (3) Lactic acidosis: Status: Acute Assessment and plan: slowly improving. No other apparent source other than frequent beta agonist use to treat her severe asthma and the increased work of breathing when she presented to the hospital. I am going to quit checking lactate levels since they are declining and she is not symptomatic (4) Borderline diabetes: Status: Chronic Assessment and plan: she denies any hx of DM; presumably her elevated glucose is secondary to the high dose corticosteroids. I will continue to treat her elevated glucose w/ sliding scale Novolog and add NPH for coverage of her corticosteroids. glucose readings have been in the mid 200's despite use of sensitive sliding scale. I will increase her sliding scale to moderate while on iv corticosteriods (5) Gastroesophageal reflux disease: Status: Suspected Assessment and plan: change her iv protonix to po protonix. Qualifiers: Esophagitis presence: esophagitis presence not specified Qualified Code(s): K21.9 - Gastro-esophageal reflux disease without esophagitis (6) Depression: Status: Chronic Assessment and plan: stable w/ no acute issues. continue her current Rx of Buspar and Effexor (7) DVT prophylaxis: Status: Acute Assessment and plan: cont. enoxaparin while hospitalized (8) Discharge planning issues: Status: Acute Assessment and plan: will arrange follow up w/ pulmonary consult upon discharge home Subjective Subjective Interval history since last seen: Patient reports that she is still coughing and wheezing but no sputum production. She remains afebrile. She had an episode of acute bronchospasm last night after her Pulmocort nebulizer necessitating resumption of BIPAP overnight. She is off BIPAP this a.m. and not on any oxygen. At home she is exposed to a lot of environmental allergens including animal dander and when babysitting her granddaughter she is exposed to second hand smoke from her children. The patient does not smoke herself. I think that she is medically stable and can be moved to med/surg. I am going to wean down her iv solumedrol to 60 mg IV q6hr and eliminate her Pulmocort since she is already on Symbicort. Exam Narrative Exam Narrative: Alert and oriented x 3; sitting up watching TV in no acute distress; respirations unlabored and not using her accessory muscles; still w/ occasional moist cough Lungs: diffuse expiratory wheezes Heart: RRR, w/out murmur, rub, or gallop ABD: soft and nontender extremities: warm and dry w/out cyanosis or edema Neuro: A&Ox3, no focal deficits Objective Objective Clinical Data: Abnormal lab results 09/18/19 09/18/19 09/18/19 Range/Units 06:58 06:58 06:58 WBC 20.15 H D (4.4-10.8) k/cumm Absolute Neutrophils 19.02 H (1.2-6.7) k/cumm Absolute Lymphocytes 0.52 L (1.2-3.4) k/cumm BUN 19 H D (7-18) mg/dL Glucose 241 H (74-106) mg/dL Lactate 2.7 H* (0.6-1.4) mmol/L Calcium 8.3 L (8.5-10.1) mg/dL Vital Signs Temperature 36.6 C 09/18/19 08:28 Temperature Source Temporal Artery Scan 09/18/19 08:28 Pulse 79 09/18/19 08:26 Pulse 76 09/18/19 08:26 Respiratory Rate 19 09/18/19 08:26 Respiratory Effort Incrsd Work of Breathing 09/18/19 05:01 Respiratory Depth Shallow 09/18/19 05:01 Respiratory Pattern Normal 09/18/19 05:01 Blood Pressure 134/66 09/18/19 08:26 Blood Pressure Mean 84 09/18/19 08:26 Blood Pressure Position Sitting 09/18/19 08:28 Pulse Oximetry 91 L 09/18/19 08:26 Oxygen Delivery Method Room Air 09/18/19 08:28 Oxygen Flow Rate 0 09/18/19 08:28 Fraction of Inspired Oxygen (FIO2) 26 09/17/19 16:10 Pain Level 0 09/18/19 08:28 Intake & Output 09/17/19 09/17/19 09/18/19 11:59 23:59 11:59 Intake Total 1220 / 2370 1150 / 2370 340 / 340 Output Total 600 / 1475 875 / 1475 Balance 620 / 895 275 / 895 340 / 340 Weight 113.398 kg Intake: IV 1100 / 2250 1150 / 2250 100 / 100 Oral 120 / 120 240 / 240 Output: Urine 600 / 1475 875 / 1475 Other: Urine Color Yellow Yellow Urine Appearance Clear Clear Urine Odor None Normal Voiding Methods Bedside Commode Bedside Commode Laboratory Results WBC 20.15 k/cumm (4.4-10.8) H D 09/18/19 06:58 RBC 4.22 m/cumm (4.00-5.20) 09/18/19 06:58 Hgb 12.8 g/dL (12.0-15.5) 09/18/19 06:58 Hct 39.2 % (36.0-46.0) 09/18/19 06:58 MCV 92.9 fL (80-95) 09/18/19 06:58 MCH 30.3 pg (27.0-33.0) 09/18/19 06:58 MCHC 32.7 g/dL (32.0-36.0) 09/18/19 06:58 RDW 13.6 % (11.7-14.6) 09/18/19 06:58 Plt Count 228 x1000/uL (130-400) 09/18/19 06:58 MPV 10.9 fL (8.0-11.0) 09/18/19 06:58 Immature Gran % 0.4 09/18/19 06:58 Neutrophils % 94.4 09/18/19 06:58 Lymphocytes % 2.6 09/18/19 06:58 Monocytes % 2.6 09/18/19 06:58 Eosinophils % 0.0 09/18/19 06:58 Basophils % 0.0 09/18/19 06:58 Absolute Neutrophils 19.02 k/cumm (1.2-6.7) H 09/18/19 06:58 Absolute Lymphocytes 0.52 k/cumm (1.2-3.4) L 09/18/19 06:58 Absolute Monocytes 0.52 k/cumm (0.11-0.7) 09/18/19 06:58 Absolute Eosinophils 0.00 k/cumm (0.0-0.7) 09/18/19 06:58 Absolute Basophils 0.00 k/cumm (0.0-0.2) 09/18/19 06:58 PT 10.4 sec (9.3-11.0) 09/16/19 10:55 INR 1.0 (0.9-1.1) 09/16/19 10:55 APTT 25.6 sec (21.0-31.4) 09/16/19 10:55 Sample Site Cancelled 09/16/19 10:51 pCO2 Cancelled 09/16/19 10:51 pO2 Cancelled 09/16/19 10:51 O2 Saturation Cancelled 09/16/19 10:51 ABG pH Cancelled 09/16/19 10:51 ABG HCO3 Cancelled 09/16/19 10:51 ABG Total CO2 Cancelled 09/16/19 10:51 ABG Base Excess Cancelled 09/16/19 10:51 VBG pH 7.32 (7.32-7.43) 09/16/19 11:10 VBG pCO2 55 mm/Hg (34-47) H 09/16/19 11:10 VBG pO2 28 mm/Hg (28-44) 09/16/19 11:10 VBG HCO3 28 mmol/L (22-28) 09/16/19 11:10 VBG Total CO2 26 mmol/L (22-29) 09/16/19 11:10 VBG O2 Saturation 49 % (70-80) L 09/16/19 11:10 VBG Base Excess 2.3 mmol/L (-3-3) 09/16/19 11:10 Oxygen Liter Flow Cancelled 09/16/19 10:51 FiO2 Cancelled 09/16/19 10:51 Sodium 143 mmol/L (136-145) 09/18/19 06:58 Potassium 3.8 mmol/L (3.5-5.1) 09/18/19 06:58 Chloride 106 mmol/L (98-107) 09/18/19 06:58 Carbon Dioxide 26.7 mmol/L (21.0-32.0) 09/18/19 06:58 Anion Gap 10.3 mmol/L (3-11) 09/18/19 06:58 BUN 19 mg/dL (7-18) H D 09/18/19 06:58 Creatinine 0.98 mg/dL (0.55-1.02) 09/18/19 06:58 Estimated GFR/1.73 m2 58.29 (mL/min/1.73m2) 09/18/19 06:58 Glucose 241 mg/dL (74-106) H 09/18/19 06:58 Hemoglobin A1c 6.4 % (4.5-6.2) H 09/16/19 10:55 Lactate 2.7 mmol/L (0.6-1.4) H* 09/18/19 06:58 Calcium 8.3 mg/dL (8.5-10.1) L 09/18/19 06:58 Magnesium 2.4 mg/dL (1.8-2.4) 09/18/19 06:58 Total Bilirubin 0.4 mg/dL (0.2-1.0) 09/16/19 10:55 AST 18 U/L (15-37) 09/16/19 10:55 ALT 20 U/L (14-59) 09/16/19 10:55 Alkaline Phosphatase 108 U/L (46-116) 09/16/19 10:55 Troponin I < 0.05 ng/Ml (<0.06) 09/16/19 10:55 NT-Pro-B Natriuret Pep 429 pg/mL (<300) 09/16/19 10:55 Total Protein 8.0 g/dL (6.4-8.2) 09/16/19 10:55 Albumin 4.1 g/dL (3.4-5.0) 09/16/19 10:55 Procalcitonin < 0.1 ng/mL 09/16/19 12:39 TSH 1.36 uIU/mL (0.36-3.74) 09/16/19 12:40 Free T4 0.78 ng/dL (0.76-1.46) 09/16/19 12:40 Objective Narrative Objective Narrative: Peak flows of 230 this a.m.
[2019-09-18] MEDS: Acetaminophen 325 MG TAB PO (09:41)
[2019-09-18] MEDS: Docusate Sodium 100 MG CAP PO (09:41)
[2019-09-18 09:45] LABS: Influenza A RNA Result Negative (Negative); Influenza B RNA Result Negative (Negative); RSV RNA Result Negative (Negative)
[2019-09-18] MEDS: Insulin NPH-Human 300 UNITS/3 ML PEN 24 UNIT SC ×2 (12:30→17:39)
[2019-09-18] MEDS: methylPREDNISolone SUCC 125 MG VIAL 60 MG IVP ×2 (13:09→17:38)
[2019-09-18] MEDS: Enoxaparin 40 MG/0.4 ML SYR SC (14:21)
--- NOTE | 2019-09-18 19:33 | PDOC.CMPRO ---
- If Service Date Differs Date of service: 09/18/19 Time of Service: 19:33 Care Management Progress Note S/O: Christiana is lying in bed watching television when CM comes to meet with her. Christiana reports she is improving but is not back to baseline yet. She is occupying her time with search word puzzles and watching television. At her request, CM helps her complete Advance Directives. CM continues to follow. A: Christiana is a 59 year old female admitted to [facility] on 09/16/2019 for asthma exacerbation. P: Christiana will be discharged home when medically cleared by provider. Anticipate no new services at time of discharge. Christiana will be transported home by family via private vehicle when ready. CM continues to follow and to support discharge planning considerations. - MH Services (Omit if N/A) Current MH Services: Other (Sees Lobito Hunt for therapy) Referred to Internal [facility] (ED embedded) case assistant?: No
[2019-09-18] MEDS: traZODone 50 MG TAB PO (22:33)
[2019-09-19] MEDS: methylPREDNISolone SUCC 125 MG VIAL 60 MG IVP ×2 (00:28→06:01)
[2019-09-19 06:00] VITALS: RESP 4
[2019-09-19] MEDS: Albuterol/Ipratropium 3 ML UPD VIAL UPD ×3 (06:00→18:09)
[2019-09-19] MEDS: Benzonatate 200 MG CAP PO ×3 (08:19→19:05)
[2019-09-19] MEDS: buPROPion-CR 150 MG TABCR PO ×2 (08:19→19:05)
[2019-09-19] MEDS: Insulin Aspart 300 UNITS/3 ML PEN SC ×3 (08:19→16:59)
[2019-09-19] MEDS: Insulin NPH-Human 300 UNITS/3 ML PEN 24 UNIT SC (08:19)
[2019-09-19] MEDS: Pantoprazole 40 MG TABCR PO (08:19)
[2019-09-19] MEDS: Venlafaxine 150 MG CAPCR PO ×2 (08:20→19:05)
[2019-09-19 09:00] VITALS: BP 126/66; PULSE 82; RESP 18; TEMP 36.8; O2SAT 94
[2019-09-19] MEDS: Budesonide/Formoterol 160/4.5 6 GM 60 PUFF INH IH ×2 (09:56→19:04)
[2019-09-19] MEDS: predniSONE 20 MG TAB 60 MG PO (10:35)
[2019-09-19 11:19] VITALS: PULSE 80; RESP 22; RESP 4; RESP 7; O2SAT 99
[2019-09-19 12:01] VITALS: BP 125/64; PULSE 96; RESP 20; TEMP 36.6; O2SAT 96
[2019-09-19] MEDS: Enoxaparin 40 MG/0.4 ML SYR SC (15:01)
--- NOTE | 2019-09-19 15:38 | PDOC.CMPRO ---
- If Service Date Differs Date of service: 09/19/19 Time of Service: 15:38 Care Management Progress Note S/O: Christiana is lying in bed when CM meets with her today. She is pleasant and easily engages in conversation. She reports she is feeling much better and hopes to be discharged home tomorrow. She shares with a smile on her face that she will be mobbed by her 2 year old granddaughter and the dogs when she gets back home. Christiana continues to improve and no longer requires the Bipap but is not back to baseline yet. CM continues to follow. A: Christiana is a 59 year old female admitted to [facility] on 09/16/2019 for asthma exacerbation. P: Christiana will discharge home when medically cleared by provider. Anticipate no new services needed at time of discharge. If Christiana is discharged prior to 3:00 pm on a weekday, transport home will be via [facility]. If discharge takes place after 3:00 pm, Christiana's son-in-law will provide transportation via private vehicle. CM continues to follow. - MH Services (Omit if N/A) Current MH Services: Other (Sees Lobito Floyd for therapy in the community)
[2019-09-19 16:00] VITALS: BP 125/78; PULSE 75; RESP 22; TEMP 36.3; O2SAT 93
[2019-09-19] MEDS: Insulin NPH-Human 300 UNITS/3 ML PEN 30 UNIT SC (17:00)
[2019-09-19 18:09] VITALS: PULSE 75; RESP 1; RESP 22; RESP 8; O2SAT 93
[2019-09-19] MEDS: Nystatin CREAM 30 GM TUBE TP (19:04)
[2019-09-19] MEDS: Montelukast 10 MG TAB PO (19:05)
--- NOTE | 2019-09-19 20:19 | NUR.NOTE ---
Patient had a shower after dinner. Her rash in the pannus was patted dry and the nystatin cream was applied to the rash. The rash is deep pink and extends across the entire pannus, and there was some discomfort noted with the treatment. Nursing Note:
--- NOTE | 2019-09-19 20:54 | PGE_ITS ---
Date of Service Date of service: 09/19/19 Time of Service: 11:55 Assessment and Plan Assessment and plan (1) Acute asthma exacerbation: Status: Acute Assessment and plan: Now on oral prednisone. Will have RT go over her use of MDI prior to discharge tomorrow. Will ask CM to set her up w/ pulmonary consult upon discharge. Qualifiers: Asthma severity: severe Asthma persistence: unspecified Qualified Code(s): J45.901 - Unspecified asthma with (acute) exacerbation (2) Thrush, oral: Status: Acute Assessment and plan: improving. no dysphagia or odynophagia. continue nystatin swich and swallow (3) Lactic acidosis: Status: Acute Assessment and plan: Improving. I will recheck in the a.m. to ensure that his is resolving. (4) Borderline diabetes: Status: Chronic Assessment and plan: glucose in the low 200's today. She is still being covered with insulin. I will check a glycohemoglobin A1c before discharge to be sure that she is not a latent DM. Otherwise her PCP can follow up w/ FBS after completion of her prednisone. (5) Gastroesophageal reflux disease: Status: Suspected Assessment and plan: continue po protonix Qualifiers: Esophagitis presence: esophagitis presence not specified Qualified Code(s): K21.9 - Gastro-esophageal reflux disease without esophagitis (6) Depression: Status: Chronic Assessment and plan: stable w/ no acute issues. continue her current Rx of Buspar and Effexor Qualifiers: Depression Type: major depressive disorder Major depression recurrence: recurrent Active/Remission status: in partial remission Qualified Code(s): F33.41 - Major depressive disorder, recurrent, in partial remission (7) DVT prophylaxis: Status: Acute Assessment and plan: cont. enoxaparin while hospitalized (8) Discharge planning issues: Status: Acute Assessment and plan: will arrange follow up w/ pulmonary consult upon discharge home Subjective Subjective Interval history since last seen: Christiana magdalenoues to improve. She remains off any oxygen. She still has a moist cough but it is nonproductive. She is afebrile. I have switched her to oral prednisone. She remains on Symbicort along w/ scheduled DuoNeb treatments althoug we are going to back down the frequency to Q6hr. I am adding Singulair to her regimen. I plan on discharging her tomorrow morning. 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 I think that it would be worth having her retested on her allergens. Exam Narrative Exam Narrative: Middle age female A&Ox4 Occasional moist cough Lungs w/ diffuse expiratory wheezes but fairly good air movement; no rales or rhonchi Heart: RRR w/out murmur, rub or gallop ABdomen: obese soft and nontender Objective Objective Clinical Data: Vital Signs Temperature 36.3 C L 09/19/19 16:00 Temperature Source Tympanic 09/19/19 16:00 Pulse 75 09/19/19 18:09 Pulse Rhythm Regular 09/19/19 08:35 Pulse 76 09/18/19 08:26 Respiratory Rate 22 09/19/19 18:09 Respiratory Effort 09/19/19 16:00 Respiratory Depth Normal 09/19/19 16:00 Respiratory Pattern Normal 09/19/19 16:00 Blood Pressure 125/78 09/19/19 16:00 Blood Pressure Mean 66 09/18/19 15:49 Blood Pressure Position Sitting 09/18/19 08:28 Pulse Oximetry 93 L 09/19/19 18:09 Oxygen Delivery Method Room Air 09/19/19 18:09 Oxygen Flow Rate 0 09/19/19 18:09 Fraction of Inspired Oxygen (FIO2) 26 09/17/19 16:10 Pain Level 0 09/19/19 16:00 Intake & Output 09/18/19 09/19/19 09/19/19 23:59 11:59 23:59 Intake Total 980 / 1880 250 / 1450 1200 / 1450 Balance 980 / 1280 250 / 1450 1200 / 1450 Intake: IV Oral 980 / 1780 240 / 1440 1200 / 1440 Other: Urine Appearance Clear Clear Clear Comment Urine not seen but pt reports voiding without issues Voiding Methods Toilet Laboratory Results WBC 20.15 k/cumm (4.4-10.8) H D 09/18/19 06:58 RBC 4.22 m/cumm (4.00-5.20) 09/18/19 06:58 Hgb 12.8 g/dL (12.0-15.5) 09/18/19 06:58 Hct 39.2 % (36.0-46.0) 09/18/19 06:58 MCV 92.9 fL (80-95) 09/18/19 06:58 MCH 30.3 pg (27.0-33.0) 09/18/19 06:58 MCHC 32.7 g/dL (32.0-36.0) 09/18/19 06:58 RDW 13.6 % (11.7-14.6) 09/18/19 06:58 Plt Count 228 x1000/uL (130-400) 09/18/19 06:58 MPV 10.9 fL (8.0-11.0) 09/18/19 06:58 Immature Gran % 0.4 09/18/19 06:58 Neutrophils % 94.4 09/18/19 06:58 Lymphocytes % 2.6 09/18/19 06:58 Monocytes % 2.6 09/18/19 06:58 Eosinophils % 0.0 09/18/19 06:58 Basophils % 0.0 09/18/19 06:58 Absolute Neutrophils 19.02 k/cumm (1.2-6.7) H 09/18/19 06:58 Absolute Lymphocytes 0.52 k/cumm (1.2-3.4) L 09/18/19 06:58 Absolute Monocytes 0.52 k/cumm (0.11-0.7) 09/18/19 06:58 Absolute Eosinophils 0.00 k/cumm (0.0-0.7) 09/18/19 06:58 Absolute Basophils 0.00 k/cumm (0.0-0.2) 09/18/19 06:58 PT 10.4 sec (9.3-11.0) 09/16/19 10:55 INR 1.0 (0.9-1.1) 09/16/19 10:55 APTT 25.6 sec (21.0-31.4) 09/16/19 10:55 Sample Site Cancelled 09/16/19 10:51 pCO2 Cancelled 09/16/19 10:51 pO2 Cancelled 09/16/19 10:51 O2 Saturation Cancelled 09/16/19 10:51 ABG pH Cancelled 09/16/19 10:51 ABG HCO3 Cancelled 09/16/19 10:51 ABG Total CO2 Cancelled 09/16/19 10:51 ABG Base Excess Cancelled 09/16/19 10:51 VBG pH 7.32 (7.32-7.43) 09/16/19 11:10 VBG pCO2 55 mm/Hg (34-47) H 09/16/19 11:10 VBG pO2 28 mm/Hg (28-44) 09/16/19 11:10 VBG HCO3 28 mmol/L (22-28) 09/16/19 11:10 VBG Total CO2 26 mmol/L (22-29) 09/16/19 11:10 VBG O2 Saturation 49 % (70-80) L 09/16/19 11:10 VBG Base Excess 2.3 mmol/L (-3-3) 09/16/19 11:10 Oxygen Liter Flow Cancelled 09/16/19 10:51 FiO2 Cancelled 09/16/19 10:51 Sodium 143 mmol/L (136-145) 09/18/19 06:58 Potassium 3.8 mmol/L (3.5-5.1) 09/18/19 06:58 Chloride 106 mmol/L (98-107) 09/18/19 06:58 Carbon Dioxide 26.7 mmol/L (21.0-32.0) 09/18/19 06:58 Anion Gap 10.3 mmol/L (3-11) 09/18/19 06:58 BUN 19 mg/dL (7-18) H D 09/18/19 06:58 Creatinine 0.98 mg/dL (0.55-1.02) 09/18/19 06:58 Estimated GFR/1.73 m2 58.29 (mL/min/1.73m2) 09/18/19 06:58 Glucose 241 mg/dL (74-106) H 09/18/19 06:58 Hemoglobin A1c 6.4 % (4.5-6.2) H 09/16/19 10:55 Lactate 2.7 mmol/L (0.6-1.4) H* 09/18/19 06:58 Calcium 8.3 mg/dL (8.5-10.1) L 09/18/19 06:58 Magnesium 2.4 mg/dL (1.8-2.4) 09/18/19 06:58 Total Bilirubin 0.4 mg/dL (0.2-1.0) 09/16/19 10:55 AST 18 U/L (15-37) 09/16/19 10:55 ALT 20 U/L (14-59) 09/16/19 10:55 Alkaline Phosphatase 108 U/L (46-116) 09/16/19 10:55 Troponin I < 0.05 ng/Ml (<0.06) 09/16/19 10:55 NT-Pro-B Natriuret Pep 429 pg/mL (<300) 09/16/19 10:55 Total Protein 8.0 g/dL (6.4-8.2) 09/16/19 10:55 Albumin 4.1 g/dL (3.4-5.0) 09/16/19 10:55 Procalcitonin < 0.1 ng/mL 09/16/19 12:39 TSH 1.36 uIU/mL (0.36-3.74) 09/16/19 12:40 Free T4 0.78 ng/dL (0.76-1.46) 09/16/19 12:40
[2019-09-19] MEDS: traZODone 50 MG TAB PO (22:18)
[2019-09-20] VITALS (8 sets, daily range): BP systolic 113–156; BP diastolic 55–73; PULSE 62–83; RESP 4–22; TEMP 35.7–36.5; O2SAT 93–99
[2019-09-20] MEDS: Albuterol/Ipratropium 3 ML UPD VIAL UPD ×3 (01:01→13:07)
[2019-09-20 07:47] LABS: Lactate 1.6 mmol/L (0.6-1.4)
[2019-09-20] MEDS: Budesonide/Formoterol 160/4.5 6 GM 60 PUFF INH IH (08:25)
[2019-09-20] MEDS: Insulin NPH-Human 300 UNITS/3 ML PEN 30 UNIT SC (09:49)
[2019-09-20 09:51] LABS: Anion Gap 8.7 mmol/L (3-11); BUN 21 mg/dL (7-18); CO2 28.3 mmol/L (21.0-32.0); CREATININE 1.04 mg/dL (0.55-1.02); Calcium 8.6 mg/dL (8.5-10.1); Chloride 105 mmol/L (98-107); Estimated GFR 54.43 (mL/min/1.73m2); Glucose 60 mg/dL (74-106); Potassium 3.9 mmol/L (3.5-5.1); Sodium 142 mmol/L (136-145)
[2019-09-20] MEDS: Pantoprazole 40 MG TABCR PO (09:51)
[2019-09-20] MEDS: predniSONE 20 MG TAB 60 MG PO (09:51)
[2019-09-20] MEDS: Nystatin CREAM 30 GM TUBE TP (09:51)
[2019-09-20] MEDS: Venlafaxine 150 MG CAPCR PO (09:51)
[2019-09-20] MEDS: buPROPion-CR 150 MG TABCR PO (09:51)
[2019-09-20] MEDS: Benzonatate 200 MG CAP PO ×2 (09:51→14:36)
[2019-09-20 09:52] LABS: HCT 38.9 % (36.0-46.0); HGB 12.8 g/dL (12.0-15.5); Mean Corp. HGB Concentration 32.9 g/dL (32.0-36.0); Mean Corpuscular Hemoglobin 30.5 pg (27.0-33.0); Mean Corpuscular Volume 92.8 fL (80-95); RBC 4.19 m/cumm (4.00-5.20); RBC Distribution Width 13.8 % (11.7-14.6); White Blood Cell Count 16.97 k/cumm (4.4-10.8)
[2019-09-20 09:53] LABS: Absolute Basophil Count 0.03 k/cumm (0.0-0.2); Absolute Eosinophil Count 0.01 k/cumm (0.0-0.7); Absolute Monocyte Count 1.29 k/cumm (0.11-0.7); Absolute Neutrophil Count 12.94 k/cumm (1.2-6.7); Basophils % 0.2; Eosinophils % 0.1; Immature Grans % 1.8; Lymphocytes % 14.1; Mean Platelet Volume 10.4 fL (8.0-11.0); Monocytes % 7.6; Neutrophils % 76.2; Platelet Count 225 x1000/uL (130-400)
--- NOTE | 2019-09-20 11:50 | PDOC.CMPRO ---
- If Service Date Differs Date of service: 09/20/19 Time of Service: 11:50 Care Management Progress Note S/O: Christiana is lying in bed when CM comes to meet with her. She reports feeling much better and is looking forward to returning home. CM continues to follow. A: Christiana is a 59 year old female admitted to [facility] on 09/16/2019 for asthma exacerbation. P: Christiana will be discharged home when medically cleared by provider. Anticipate no new services at time of discharge. Transportation home will be provided by family members via private vehicle when ready. CM continues to follow. - MH Services (Omit if N/A) Current MH Services: Other (Sees Lobito Floyd for therapy)
--- NOTE | 2019-09-20 13:54 | DSE_ITS ---
Date of service: 09/20/19 Time of Service: 14:01 DS: Diagnosis Discharge Diagnosis (1) Acute asthma exacerbation: Start date: 09/20/19 Start time: 14:01 Status: Acute Asessment and Plan: Acute exacerbation requiring ICU admission upon arrival to hospital. She is doing well, she is going home on steroid taper, she will need pulmonary consult on discharge with PFT. (2) Thrush, oral: Start date: 09/20/19 Start time: 14:03 Status: Acute Asessment and Plan: Resolved. Explained about proper technique with steroid inhaler (3) Lactic acidosis: Start date: 09/20/19 Start time: 14:04 Status: Acute Asessment and Plan: Improved (4) Borderline diabetes: Start date: 09/20/19 Start time: 14:04 Status: Chronic Asessment and Plan: F/u as outpatient, also in setting of steroids. (5) Gastroesophageal reflux disease: Start date: 09/20/19 Start time: 14:05 Status: Suspected (6) Depression: Status: Chronic (7) DVT prophylaxis: Status: Acute (8) Discharge planning issues: Status: Acute Discharge Plan Disposition Patient Disposition: HOME Condition: Good Discharge Details Chief Complaint: SOB Clinical Impression: Acute asthma exacerbation, Acute dyspnea Reason For Visit: ASTHMA EXACERBATION Admit Date/Time: 09/16/19 12:08 Admit Provider: Maria Elena Ram Attending Provider: Maria Elena Ram Primary Care Provider: Donna Portillo ED Provider: [place] Hospital Course Hospital Course: 59 y.o Female PMHx of asthma (never requiring intubation), anxiety, depression, and question of borderline diabetes, who was escorted to [facility] ED by respiratory prior to admission. Patient was found outside Resp. therapy office in distress, brought to the ED and after several rounds of duonebs and steroids patient was placed on bipap and admitted to ICU for further management. CXR upon admission with no abnormality. Initially lactate was elevated. She required large dose steroids for a couple of days with improvement. It also appears it was URI, her granddaugther was recently sick with URI. She was also on doxy and ceftriaxone for severity of illness. Symptoms improved over the course of three days. Today she is feeling much better and would like to go home. Lung sounds clear diminished. Recommend PFT with follow up to PCP in 1 week. Pulmonary follow up as well. She denies Cp, SOB, N/v/d/ Home Meds and New Rx's Prescriptions: New benzonatate 200 mg Capsule 200 mg PO TID Qty: 60 RF: 0 codeine-guaifenesin 10-100 mg/5 mL Liquid 10 ml PO Q4H PRN PRNQty: 100 RF: 0 Symbicort 160-4.5 mcg/actuation Hfa Aerosol Inhaler 2 puff inhalation BID Qty: 1 RF: 0 prednisone 20 mg tablet 20 mg PO DAILY Qty: 14 RF: 0 nystatin 100,000 unit/mL suspension 1 ml PO .5xday Qty: 100 RF: 0 Continued bupropion HCl [Wellbutrin SR] 150 mg tablet sustained-release 12 hr 150 mg PO BID Qty: 180 RF: 3 trazodone 50 mg tablet 50 mg PO HS Qty: 90 RF: 3 venlafaxine [Effexor XR] 150 mg capsule,extended release 24hr 150 mg PO BID Qty: 180 RF: 3 albuterol sulfate 1.25 MG/3 ML solution for nebulization 1.25 mg Inhalation Q4H PRN Qty: 150 RF: 12 levalbuterol tartrate [Xopenex HFA] 15 GM HFA aerosol inhaler 2 puff Inhalation QID PRNQty: 1 RF: 12 fluticasone propion-salmeterol [Advair Diskus] 1 EACH blister with device 2 ea Inhalation BID RF: 0 (DME) LC D Nebulizer Set 1 EACH misc 1 ea Miscellaneous DIRECTED RF: 0 Discharge Instructions Instructions: Asthma (DC), Oral Candidiasis (GEN), Moderate and Severe Persistent Asthma (DC), How to Use a Nebulizer (DC), Reactive Airways Disease (DC), Bronchospasm (DC), How Your Lungs Work (DC) Additional Instructions: Follow up with your primary provider, you have an appt for Friday at 845 am Recommend Pulmonary function testing, Will call to schedule with you Follow up with Pulmonology Take prednisone as follows: 60 mg x 2 days, 40 mg x 3 days, 20 mgs x 3 days 10 mg x 3 days. Finish Make sure to swish and swallow after using symbicort. Stand Alone Forms: Nursing Discharge Form Referrals: Lottie Astudillo MD [ NON-[facility] STAFF PHYSICIAN] - 09/20/19 2:26 pm (Patient is asthmatic that needs tighter control. No PFT, ordered. ) Donna Portillo NP [Primary Care Provider] - 09/27/19 8:45 am Activity:: Activity as Tolerated Equipment/Supplies:: No Equipment Needed Diet:: Carb Counting Discharge Orders Discharge Orders: Discharge Order (Routine); Ordered 09/20/19 Ordered By: Libertad Zapata Other Ambulatory Orders: PFT ([facility]) (Outpt) (ONCE) Location: None Selected Ordered By: Libertad Zapata DS: Summary Status at Discharge Functional status at discharge: independent ambulation Overall status at discharge: patient is back to baseline Mental Status: mental status grossly normal Speech and Movement: speech and movement normal Mood: congruent mood Affect: normal affect Exam Narrative Exam Narrative: Middle age female A&Ox4 Eyes PERRLA, EOMI Occasional moist cough Cardio: RRR. no murmur appreciated Lungs clear diminished; no rales or rhonchi Heart: RRR w/out murmur, rub or gallop ABdomen: obese soft and nontender Neuro: AAO x 3 Extrem: FROM, no clubbing, cyanosis or edema Psych Mental Status: mental status grossly normal Speech and Movement: speech and movement normal Mood: congruent mood Affect: normal affect DS: Data Vitals/I&O Vitals and I&O: Vital Signs Temperature 36.5 C 09/20/19 08:04 Temperature Source Tympanic 09/20/19 08:04 Pulse 80 09/20/19 13:07 Pulse Rhythm Regular 09/20/19 09:50 Pulse 76 09/18/19 08:26 Respiratory Rate 18 09/20/19 13:07 Respiratory Effort 09/20/19 09:50 Respiratory Depth Normal 09/20/19 09:50 Respiratory Pattern Normal 09/20/19 09:50 Blood Pressure 156/73 H 09/20/19 08:04 Blood Pressure Mean 66 09/18/19 15:49 Blood Pressure Position Sitting 09/18/19 08:28 Pulse Oximetry 99 09/20/19 13:07 Oxygen Delivery Method Room Air 09/20/19 13:07 Oxygen Flow Rate 0 09/20/19 13:07 Fraction of Inspired Oxygen (FIO2) 26 09/17/19 16:10 Pain Level 0 09/20/19 08:04 Intake & Output 09/19/19 09/20/19 09/20/19 23:59 11:59 23:59 Intake Total 1200 / 1450 360 / 360 Balance 1200 / 1450 360 / 360 Intake: Oral 1200 / 1440 360 / 360 Other: Urine Appearance Clear Comment voided x3 in toilet Voiding Methods Toilet Data Completed and Pending Completed studies during hospitalization [Text1]: FINDINGS: Cardiac and mediastinal contours have a normal appearance. Leads overlie the upper chest. The lungs appear clear throughout. No peribronchial thickening, infiltrate or effusion is seen. There are no visible underlying emphysematous or fibrotic changes. IMPRESSION: Negative portable chest Labs on day of discharge: Labs from last 24 hours 09/20/19 09/20/19 09/20/19 06:35 06:35 06:35 WBC 16.97 H RBC 4.19 Hgb 12.8 Hct 38.9 MCV 92.8 MCH 30.5 MCHC 32.9 RDW 13.8 Plt Count 225 MPV 10.4 Immature Gran % 1.8 Neutrophils % 76.2 Lymphocytes % 14.1 Monocytes % 7.6 Eosinophils % 0.1 Basophils % 0.2 Absolute Neutrophils 12.94 H Absolute Lymphocytes 2.40 Absolute Monocytes 1.29 H Absolute Eosinophils 0.01 Absolute Basophils 0.03 Sodium 142 Potassium 3.9 Chloride 105 Carbon Dioxide 28.3 Anion Gap 8.7 BUN 21 H Creatinine 1.04 H Estimated GFR/1.73 m2 54.43 Glucose 60 L D Serum Osmolality Lactate 1.6 H Calcium 8.6 Specimen Type Influenza Type A RNA Influenza Type B RNA RSV RNA Qual (PCR) 09/16/19 09/16/19 15:45 15:35 WBC RBC Hgb Hct MCV MCH MCHC RDW Plt Count MPV Immature Gran % Neutrophils % Lymphocytes % Monocytes % Eosinophils % Basophils % Absolute Neutrophils Absolute Lymphocytes Absolute Monocytes Absolute Eosinophils Absolute Basophils Sodium Potassium Chloride Carbon Dioxide Anion Gap BUN Creatinine Estimated GFR/1.73 m2 Glucose Serum Osmolality 290 Lactate Calcium Specimen Type Not Applicable Influenza Type A RNA Negative Influenza Type B RNA Negative RSV RNA Qual (PCR) Negative 09/16/19 15:35 Sputum Sputum Culture - Pending 09/16/19 15:35 Sputum Gram Stain - Pending Preliminary micro results at discharge 09/16/19 15:35 Sputum Culture - Pending Sputum Gram Stain - Pending [facility] Medical History Anxiety (Chronic 06/02/18) Asthma (Acute 12/04/16) Depression (Chronic 12/04/16) Elevated cholesterol (Acute 06/02/18) Migraine headache (Acute 12/04/16) Surgical History (R) Ankle (10/13/90) Arthroplasty of knee (08/14/10) Right knee. W/Patellar Chondroplasty History of epicondylectomy (Acute) 03/18/18 Left - partial medial epicondylectomy and ulnar decompression of the cubital tunnel. Hx of carpal tunnel repair (Chronic) right Hysterectomy (10/13/94) Medial epicondylitis of right elbow (Chronic) Status post debridement on 04/07/2019 Oophrectomy, Both 1989 & 1997 Open Carpal Tunnel release (10/20/13) Bilateral Plantar Fasciotomy (03/02/10) Right Pt states left foot Reduction mammoplasty (10/13/03) Repair of inguinal hernia (01/11/13) Right Replacement of total knee joint (04/29/11) Right Rotator Cuff Repair Bilateral-R:2006 L:2008 Family History Other Adopted Social History Smoking/Tobacco Use Status: Never Second Hand Exposure: Yes (daughter's house - few times a week. 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
--- NOTE | 2019-09-20 18:56 | PDOC.CMDIS ---
- If Service Date Differs Date of service: 09/20/19 Time of Service: 18:56 LACE Index Scoring Tool - Questions: Length of Stay (in days): 4 - 6 Acuity (Admit via E.D.?): Yes E.D. Visits: 1 - Answers: Total Score: 8 Risk of Readmission: Low Risk Care Management Discharge Reason for Hospitalization: Asthma exacerbation Discharge Plan: Christiana will be discharged home with no new services. Transportation home will be provided by family member ([id number]) via private vehicle. Christiana will follow up with her PCP and discharge plan of care. Patient/Family Education Needs: Discharge plan, limitations, follow up plan, Ask Me Three.
== END 2019-09-20 15:12 | disposition home or self-care (01) | DRG 202 ==
LOC: ER 12:36 → ICU 13:07 → MS 09-20 14:11 → ICU 09-23 13:47
PROVIDERS: Admitting Provider Internal Medicine; Emergency Provider Student in an Organized Health Care Education/Training Program; PCP Nurse Practitioner; Visit Provider Internal Medicine
DX: J45.901 Unspecified asthma with (acute) exacerbation (principal); B37.0 Candidal stomatitis; E87.2 Acidosis; R73.03 Prediabetes; K21.9 Gastro-esophageal reflux disease without esophagitis; F32.9 Major depressive disorder, single episode, unspecified; F41.9 Anxiety disorder, unspecified
CPT/HCPCS: 36415; 80048; 80053; 82805; 84145; 87449; 87631; 93005; 94640; 96365; 96375; 99232; 99239; 99285; 99291; J1650; 71045; 83036; 83605; 83735; 83880; 83930; 84439; 84443; 84484; 85025; 85610; 85730; 87070; 87205; 93010; 94660; J0696; J2060; J2930; J7512; J7620; J7626

== ENCOUNTER 2020-04-04 00:30 | Outpatient (CLI) | payer MEDICAID, SELFPAY ==
--- NOTE | 2020-04-04 13:10 | DI.MAMMO_ITS ---
EXAM: MAMMO SCREENING CLINICAL HISTORY: screening, Z12.39 TECHNIQUE: Mammograms were interpreted according to the usual protocol including computer analysis w ith CAD system, tomosynthesis and C-view imaging. COMPARISON: FINDINGS: The breasts are of moderate density with fairly symmetrical distribution of fibroglandular tissue. P lesvia has reportedly had prior reduction mammoplasty. There is no evidence of a dominant mass or clumped microcalcification of either breast. Comparison w ith prior examinations including May 2018 shows no interval change in appearance. IMPRESSION: No specific evidence of malignancy at this time. Routine screening examinations are suggested yearly intervals in this age group according to the ACS ACR guidelines. BI-RADS Cat 1 - Negative: Breast Density - Category B - Scattered areas of fibroglandular density
== END 2020-04-04 00:50 ==
PROVIDERS: PCP Nurse Practitioner; Visit Provider Nurse Practitioner
DX: Z12.31 Encounter for screening mammogram for malignant neoplasm of breast (principal)
CPT/HCPCS: 77063; 77067

== ENCOUNTER 2021-07-30 03:06 | Outpatient (CLI) | payer MEDICAID, SELFPAY ==
[2021-07-30 09:26] LABS: HGB 13.5 g/dL (11.2-15.7); MCH 29.9 pg (27.0-33.0); MCHC 32.1 % (32.0-36.0); MCV 93.1 fL (80-95); MPV 9.9 fL (8.0-11.0); Platelet Count 243 10^3/uL (130-400); RBC 4.51 10^6/uL (3.93-5.22); RDW 12.9 % (11.7-14.6); RDW-SD 43.7 fL; WBC 6.94 10^3/uL (4.4-10.8)
[2021-07-30 10:44] LABS: ALT 23 U/L (14-59); AST 13 U/L (15-37); Alkaline Phosphatase 106 U/L (46-116); Anion Gap 8.5 mmol/L (3-11); BUN 15 mg/dL (7-18); Bilirubin, Total 0.3 mg/dL (0.2-1.0); CO2 28.5 mmol/L (21.0-32.0); CREATININE 1.2 mg/dL (0.55-1.02); Calcium 9.2 mg/dL (8.5-10.1); Calculated LDL 137 mg/dL (<100); Chloride 105 mmol/L (98-107); Cholesterol 210 mg/dL (<200); Estimated GFR 45.83 (mL/min/1.73m2); Glucose 135 mg/dL (74-106); HDL Cholesterol 58 mg/dL (40-60); Potassium 4.4 mmol/L (3.5-5.1); Sodium 142 mmol/L (136-145); Total Protein 7.3 g/dL (6.4-8.2); Triglyceride 78 mg/dL (<150)
== END 2021-07-30 03:07 | disposition home or self-care (01) ==
LOC: LBO 03:06
PROVIDERS: PCP Nurse Practitioner; Visit Provider Nurse Practitioner
DX: E78.00 Pure hypercholesterolemia, unspecified (principal); R73.03 Prediabetes; E66.8 Other obesity
CPT/HCPCS: 36415; 80053; 80061; 85027

== ENCOUNTER → 2022-04-01 01:45 | Outpatient (CLI) | payer MEDICAID, SELFPAY ==
--- NOTE | 2022-04-01 11:59 | DI.MAMMO_ITS ---
Exam(s) MAMMO SCREENING EXAM: MAMMO SCREENING CLINICAL HISTORY: screening, Z12.39 TECHNIQUE: Bilateral full field digital CC and MLO mammographic images were obtained with 3D tomosyn thesis and utilizing computer aided detection (CAD). COMPARISON: Available for comparison. FINDINGS: Masses/Architectural Distortion: None seen. Microcalcifications: No suspicious pleomorphic-type are seen. Skin Thickening/Nipple Retraction: None. Stable postsurgical changes are present. IMPRESSION: 1. No significant interval change with no specific features of malignancy noted. 2. Unless there is more urgent need, screening mammography is recommended, as per [place] [employer] guidelines. BI-RADS Category 1 - Negative Breast Density - Category B - Scattered areas of fibroglandular density Breast density category C or D implies that the patient has dense breast tissue. Dense breast tissue is very common and is not abnormal but dense breast tissue can make it harder to find cancer on a ma mmogram. Also, dense breast tissue may increase their breast cancer risk. This information about the result of the mammogram report was provided to the patient to raise their awareness. Use this report when you speak with the patient about their risks for breast cancer, which includes their family hist ory. At that time, you may recommend for more screening tests (Ultrasound or MRI) as they might be us eful based on their risk. A negative radiographic report should not delay biopsy if a dominant or clinically suspicious mass is present. Up to ten percent of cancers are not identified on mammography. A negative report may reinforce clinical impression. Adenosis and dense breasts may obscure an underlying neoplasm. False positive reports average 6 to 10%. Patient will receive a letter notifying them of these results.
== END ==
PROVIDERS: PCP Nurse Practitioner; Visit Provider Nurse Practitioner
DX: Z12.31 Encounter for screening mammogram for malignant neoplasm of breast (principal)
CPT/HCPCS: 77063; 77067

== ENCOUNTER 2023-01-22 03:08 | Outpatient (CLI) | payer MEDICAID, SELFPAY ==
[2023-01-22 09:33] LABS: HCT 37.7 % (36.0-46.0); HGB 12.5 g/dL (11.2-15.7); MCH 30.5 pg (27.0-33.0); MCHC 33.2 % (32.0-36.0); MCV 92 fL (80-95); MPV 9.9 fL (8.0-11.0); Platelet Count 230 10^3/uL (130-400); RDW 12.9 % (11.7-14.6); RDW-SD 43.7 fL; WBC 7.18 10^3/uL (4.4-10.8)
[2023-01-22 10:19] LABS: ALT 20 U/L (14-59); AST 15 U/L (15-37); Albumin 3.6 g/dL (3.4-5.0); Alkaline Phosphatase 98 U/L (46-116); Anion Gap 5.2 mmol/L (3-11); BUN 18 mg/dL (7-18); Bilirubin, Total 0.3 mg/dL (0.2-1.0); CO2 30.8 mmol/L (21.0-32.0); CREATININE 1.2 mg/dL (0.55-1.02); Calcium 9.2 mg/dL (8.5-10.1); Calculated LDL 112 mg/dL (<100); Chloride 104 mmol/L (98-107); Cholesterol 190 mg/dL (<200); Glucose 127 mg/dL (74-106); HDL Cholesterol 64 mg/dL (40-60); Potassium 4.1 mmol/L (3.5-5.1); Sodium 140 mmol/L (136-145); Total Protein 7.2 g/dL (6.4-8.2); Triglyceride 71 mg/dL (<150)
[2023-01-23 10:45] LABS: HIV-1/2 Ag & Ab Screen Negative (Negative); Hepatitis C Ab w Rflx HCV PCR Negative (Negative)
== END 2023-01-22 03:09 | disposition home or self-care (01) ==
LOC: LBO 03:08
PROVIDERS: PCP Nurse Practitioner; Visit Provider Nurse Practitioner
DX: E78.00 Pure hypercholesterolemia, unspecified (principal); E11.9 Type 2 diabetes mellitus without complications; Z11.4 Encounter for screening for human immunodeficiency virus [HIV]; Z11.59 Encounter for screening for other viral diseases
CPT/HCPCS: 36415; 80053; 80061; 85027; 86803; 87389

== ENCOUNTER 2023-12-02 10:36 | Emergency (ER) | payer MEDICAID, SELFPAY ==
[2023-12-02 10:40] VITALS: BP 158/83; PULSE 87; RESP 16; TEMP 36.5; O2SAT 100
[2023-12-02] MEDS: Acetaminophen 325 MG TAB 650 MG PO (11:16)
[2023-12-02] MEDS: Ketorolac 30 MG/ML VIAL IM (11:17)
--- NOTE | 2023-12-02 11:36 | DI.CT_ITS ---
Exam(s) CT CERVICAL SPINE WO EXAM: CT CERVICAL SPINE WO CLINICAL HISTORY: pain, fell 1 mo ago, ttp c7. TECHNIQUE: Imaging Protocol: Axial computed tomography images with coronal and sagittal reformatted images were created and reviewed COMPARISON: No exams were available for comparison FINDINGS: CERVICAL SPINE: There is no evidence of acute fracture. No significant prevertebral soft tissue swelling. No significant listhesis. There is chronic disc space narrowing at C5-6 and C6-7 levels with anterior osseous lipping at these levels as well as posterior Luschka joint osteophytes posteriorly at these levels. Some degenerative changes noted in the facet joints but no facet joint malalignment. No significant osseous lesions evident. IMPRESSION: No evidence of acute cervical spine fracture, malalignment, nor acute compromise of the cervical spin al canal. Chronic degenerative changes as described above. Called by myself to ER provider. RADIATION DOSE DELIVERED: 691.79mGy.cm Total DLP DATA REPOSITORY: All CT scans at this facility are submitted to the National Radiology Data Registry (NRDR) Dose Index Registry (DIR) with the [employer] (ACR). RADIATION OPTIMIZATION: All CT scans at this facility use at least one of these dose optimization te chniques: automated exposure control; mA and/or kV adjustment per patient size (includes targeted exa ms where dose is matched to clinical indication); or iterative reconstruction.
--- NOTE | 2023-12-02 11:45 | DI.RAD_ITS ---
Exam(s) XR SCAPULA LT EXAM: XR SCAPULA LT CLINICAL HISTORY: pain, fell 1mo ago, ttp posterior. TECHNIQUE: 2D digital imaging was performed. COMPARISON: CR XR SHOULDER RT COMPLETE 2+V from 07/07/2019 FINDINGS: Two views. No evidence of scapular fracture. Evidence of previous rotator cuff surgery in the left humeral head . IMPRESSION: No acute osseous findings in the scapula. DATA REPOSITORY: RADIATION DOSE DELIVERED:
--- NOTE | 2023-12-02 11:58 | W.ED.GENAD ---
HPI General Date/Time Provider Initiated Documentation: 12/02/23 11:10. HPI Narrative: This 63-year-old female fell a month ago in the shower, injured left Related Data Home Medications Medication Instructions Recorded Confirmed trazodone 100 mg tablet 100 mg PO HS #90 tab-caps 05/08/22 12/02/23 empagliflozin 25 mg tablet 25 mg PO DAILY #90 tabs 08/06/22 12/02/23 ketoconazole 2 % topical cream 1 applic topical BID PRN Rash 08/06/22 12/02/23 under breasts #60 grams budesonide-formoterol HFA 160 2 puff inhalation BID #10.2 grams 01/29/23 12/02/23 mcg-4.5 mcg/actuation aerosol inhaler (Symbicort) incontinence pad, liner, disp #156 ea 01/29/23 01/29/23 (Poise Pads) ipratropium 0.5 mg-albuterol 3 mg 3 ml inhalation QID PRN wheezing 01/29/23 12/02/23 (2.5 mg base)/3 mL nebulization #90 mL soln bupropion HCl 150 mg tablet,12 hr See Rx Instructions .Route 07/28/23 12/02/23 sustained-release .COMPLEX #180 tabs venlafaxine 150 mg See Rx Instructions .Route 07/28/23 12/02/23 capsule,extended release 24 hr .COMPLEX #180 caps sumatriptan succinate 100 mg tablet See Rx Instructions PO .COMPLEX 08/05/23 12/02/23 #10 tabs Previous Rx's Medication Instructions Recorded trazodone 100 mg tablet 100 mg PO HS #90 tab-caps 05/08/22 empagliflozin 25 mg tablet 25 mg PO DAILY #90 tabs 08/06/22 ketoconazole 2 % topical cream 1 applic topical BID PRN Rash 08/06/22 under breasts #60 grams budesonide-formoterol HFA 160 2 puff inhalation BID #10.2 grams 01/29/23 mcg-4.5 mcg/actuation aerosol inhaler (Symbicort) incontinence pad, liner, disp #156 ea 01/29/23 (Poise Pads) ipratropium 0.5 mg-albuterol 3 mg 3 ml inhalation QID PRN wheezing 04/19/23 (2.5 mg base)/3 mL nebulization #90 mL soln bupropion HCl 150 mg tablet,12 hr See Rx Instructions .Route 07/28/23 sustained-release .COMPLEX #180 tabs venlafaxine 150 mg See Rx Instructions .Route 07/28/23 capsule,extended release 24 hr .COMPLEX #180 caps sumatriptan succinate 100 mg tablet See Rx Instructions PO .COMPLEX 08/05/23 #10 tabs Allergies Allergy/AdvReac Type Severity Reaction Status Date / Time aspirin AdvReac Intermediate vomiting Verified 12/02/23 10:39 CATS Allergy Intermediate Swelling/Ed Uncoded 12/02/23 10:39 sheree ENVIROMENTAL Allergy Mild COUGHING Uncoded 12/02/23 10:39 General Stated Complaint: Orthopedic ULICES: 4 Course Vital Signs Vital signs: Vital Signs Temperature 36.5 C 12/02/23 10:40 Pulse 87 12/02/23 10:40 Respiratory Rate 16 12/02/23 10:40 Blood Pressure 158/83 H 12/02/23 10:40 Pulse Oximetry 100 12/02/23 10:40 Temperature 36.5 C 12/02/23 10:40 Temperature Source Temporal Artery Scan 12/02/23 10:40 Pulse 87 12/02/23 10:40 Respiratory Rate 16 12/02/23 10:40 Respiratory Effort Normal, Non-Labored 12/02/23 10:46 Blood Pressure 158/83 H 12/02/23 10:40 Blood Pressure Position Sitting 12/02/23 10:40 Pulse Oximetry 100 12/02/23 10:40 Oxygen Delivery Method Room Air 12/02/23 10:40 Oxygen Flow Rate 0 12/02/23 10:40 Pain Level 10 12/02/23 11:17 Comment Ibu at 0830 12/02/23 10:40 Medical Decision Making Quality:SDOH Health Related Social Needs: No Data to Display PFSH All Active Problems (Updated 08/18/23 @ 18:54 by Sigrid Hutchinson LPN) Constipation (Acute ~08/2023) Abdominal bloating (Acute ~08/2023) Irritable bowel syndrome without diarrhea (Acute ~08/2023) Colonoscopy refused (Acute) Diabetes mellitus (Chronic) Domestic concerns (Acute) Seasonal allergies (Acute) Unstable knee (Acute ~11/2021) 11/19/21 [facility] [place] [facility] [place], Dr Mejía, Bone Scan and labs planned Knee pain, right (Acute) Type 2 diabetes mellitus (Acute) Pre-diabetes (Acute) Routine medical exam (Acute) Thrush, oral (Acute) Lactic acidosis (Acute) Discharge planning issues (Acute) DVT prophylaxis (Acute) Acute asthma exacerbation (Acute) Torn rotator cuff (Acute) Medial epicondylitis of right elbow (Chronic) Status post debridement on 04/07/2019 Obesity (Acute 12/17/17) Carpal tunnel syndrome (Acute 07/26/13) Borderline personality disorder (Acute 12/04/16) Borderline diabetes (Chronic 12/04/16) Agoraphobia (Acute 12/04/16) Migraine headache (Acute 12/04/16) Elevated cholesterol (Acute 06/02/18) Depression (Chronic 12/04/16) Asthma (Acute 12/04/16) Anxiety (Chronic 06/02/18) Surgical History (Updated 01/06/23 @ 18:01 by Sigrid Hutchinson LPN) Status post revision of total replacement of right knee (~11/2021) [address] Nicole for aseptic loosening 07/30/22 f/u 01/03/23 F/U Orthopaedics Hx of carpal tunnel repair right History of epicondylectomy 03/18/18 Left - partial medial epicondylectomy and ulnar decompression of the cubital tunnel. Replacement of total knee joint (04/29/11) Right Rotator Cuff Repair Bilateral-R:2006 L:2008 Plantar Fasciotomy (03/02/10) Right Pt states left foot Open Carpal Tunnel release (10/20/13) Bilateral Oophrectomy, Both 1989 & 1998 Hysterectomy (10/13/94) Repair of inguinal hernia (01/11/13) Right Reduction mammoplasty (10/13/03) Arthroplasty of knee (08/14/10) Right knee. W/Patellar Chondroplasty (R) Ankle (10/13/90) Family History Other Adopted Social History (Updated 08/06/22 @ 14:11 by Sigrid Hutchinson LPN) Smoking/Tobacco Use Status: Never Second Hand Exposure: Yes (daughter's house - few times a week. 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 Pets and animals: Yes (Pug - Conrado) Pets and animals: dog(s) Current gender identity: female What is your relationship status?: How often do you talk on the phone with friends or family?: twice per week How often do you get together with friends or relatives?: once per week Panel score (0-1 are the most socially isolated patients): 1 What type of physical activity do you participate in: none Seatbelt use: always 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 Details Chief Complaint: Orthopedic Primary Care Provider: Donna Portillo ED Provider: Vivek Bedoya Home Meds and New Rx's Prescriptions: No Action trazodone 100 mg tablet 100 mg PO HS Qty: 90 3RF ketoconazole 2 % cream 1 applic TP BID PRN (Reason: Rash under breasts) Qty: 60 2RF Rx Instructions: apply to rash under breasts BID prn empagliflozin 25 mg tablet 25 mg PO DAILY Qty: 90 3RF budesonide-formoterol [Symbicort] 160-4.5 mcg/actuation HFA aerosol inhaler 2 puff inhalation BID Qty: 10.2 12RF ipratropium-albuterol 0.5 mg-3 mg(2.5 mg base)/3 mL solution for nebulization 3 ml IH QID PRN (Reason: wheezing) Qty: 90 12RF (DME) Poise Pads Pad See Rx Instructions .Route Qty: 156 12RF Rx Instructions: Use up to 5 pads daily sumatriptan succinate 100 mg tablet See Rx Instructions PO .COMPLEX Qty: 10 6RF Rx Instructions: take 1 tab at onset of headache; if no relief, may repeat 1 tab after at least 2 hrs; max = 2 tabs/24 hrs PO venlafaxine 150 mg capsule,extended release 24hr See Rx Instructions .ROUTE .COMPLEX Qty: 180 3RF Dose Instruction: TAKE 1 CAPSULE BY MOUTH TWO TIMES A DAY Rx Instructions: TAKE 1 CAPSULE BY MOUTH TWO TIMES A DAY bupropion HCl 150 mg tablet sustained-release 12 hr See Rx Instructions .ROUTE .COMPLEX Qty: 180 3RF Dose Instruction: TAKE 1 TABLET BY MOUTH TWO TIMES A DAY Rx Instructions: TAKE 1 TABLET BY MOUTH TWO TIMES A DAY
--- NOTE | 2023-12-02 12:20 | ED.GENADUL_ITS ---
HPI General Mode of arrival: ambulatory . Date/Time Provider Initiated Documentation: 12/02/23 11:10 . Limitations to Documentation: no limitations . Information obtained by: patient . HPI Narrative: 63-year-old female presents with chief complaint of shoulder pain. Patient notes that she fell about a month ago and landed on an outstretched left arm. She notes she has had pain in her left shoulder and neck since the fall. Pain now worse over the past few days. She states she has increased pain when she lays on her left shoulder. She is having difficulty sleeping. No associated chest pain. No shortness of breath. No nausea or vomiting. No other injury sustained during the fall. She did not strike her head. Related Data Home Medications Medication Instructions Recorded Confirmed trazodone 100 mg tablet 100 mg PO HS #90 tab-caps 05/08/22 12/02/23 empagliflozin 25 mg tablet 25 mg PO DAILY #90 tabs 08/06/22 12/02/23 ketoconazole 2 % topical cream 1 applic topical BID PRN Rash 08/06/22 12/02/23 under breasts #60 grams budesonide-formoterol HFA 160 2 puff inhalation BID #10.2 grams 01/29/23 12/02/23 mcg-4.5 mcg/actuation aerosol inhaler (Symbicort) incontinence pad, liner, disp #156 ea 01/29/23 01/29/23 (Poise Pads) ipratropium 0.5 mg-albuterol 3 mg 3 ml inhalation QID PRN wheezing 01/29/23 12/02/23 (2.5 mg base)/3 mL nebulization #90 mL soln bupropion HCl 150 mg tablet,12 hr See Rx Instructions .Route 07/28/23 12/02/23 sustained-release .COMPLEX #180 tabs venlafaxine 150 mg See Rx Instructions .Route 07/28/23 12/02/23 capsule,extended release 24 hr .COMPLEX #180 caps sumatriptan succinate 100 mg tablet See Rx Instructions PO .COMPLEX 08/05/23 12/02/23 #10 tabs Previous Rx's Medication Instructions Recorded trazodone 100 mg tablet 100 mg PO HS #90 tab-caps 05/08/22 empagliflozin 25 mg tablet 25 mg PO DAILY #90 tabs 10/25/22 ketoconazole 2 % topical cream 1 applic topical BID PRN Rash 08/06/22 under breasts #60 grams budesonide-formoterol HFA 160 2 puff inhalation BID #10.2 grams 01/29/23 mcg-4.5 mcg/actuation aerosol inhaler (Symbicort) incontinence pad, liner, disp #156 ea 01/29/23 (Poise Pads) ipratropium 0.5 mg-albuterol 3 mg 3 ml inhalation QID PRN wheezing 01/29/23 (2.5 mg base)/3 mL nebulization #90 mL soln bupropion HCl 150 mg tablet,12 hr See Rx Instructions .Route 07/28/23 sustained-release .COMPLEX #180 tabs venlafaxine 150 mg See Rx Instructions .Route 07/28/23 capsule,extended release 24 hr .COMPLEX #180 caps sumatriptan succinate 100 mg tablet See Rx Instructions PO .COMPLEX 08/05/23 #10 tabs Allergies Allergy/AdvReac Type Severity Reaction Status Date / Time aspirin AdvReac Intermediate vomiting Verified 12/02/23 10:39 CATS Allergy Intermediate Swelling/Ed Uncoded 12/02/23 10:39 sheree ENVIROMENTAL Allergy Mild COUGHING Uncoded 12/02/23 10:39 General Stated Complaint: Orthopedic ULICES: 2 Review of Systems Constitutional Constitutional: Denies fever(s) Cardiovascular Cardiovascular: Reports as per HPI Gastrointestinal Gastrointestinal: Denies nausea and Denies vomiting Musculoskeletal Musculoskeletal: Reports as per HPI Exam Const General: cooperative and no acute distress HENMT Mouth: moist mucous membranes Eyes Conjunctivae: normal conjunctivae Sclera: normal sclerae Neck Neck: normal visual inspection, full ROM, trachea midline and supple Resp Auscultation: clear to auscultation bilaterally, no rales, no rhonchi and no wheezes Cardio Rate: regular rate and not tachycardic Rhythm: regular rhythm GI Palpation: soft, not firm, no guarding, no masses, not rigid and nontender Back/Spine/Pelvis Cervical Spine: cervical muscular tenderness (left) and cervical spinal tenderness (c7) Thoracic/Lumbar Spine: No thoracic spinal tenderness Skin General skin exam: no rashes or lesions noted Neuro General: patient alert, patient awake and tone normal Extrem General: no edema Left upper extremity: shoulder/upper arm Details: tenderness Location: of the scapula; not of the clavicle, not of the proximal humerus and not of the mid- shaft humerus; no swelling Psych Appearance: grossly normal Mental Status: mental status grossly normal Course Vital Signs Vital signs: Vital Signs Temperature 36.5 C 12/02/23 10:40 Pulse 87 12/02/23 10:40 Respiratory Rate 16 12/02/23 10:40 Blood Pressure 158/83 H 12/02/23 10:40 Pulse Oximetry 100 12/02/23 10:40 Temperature 36.5 C 12/02/23 10:40 Temperature Source Temporal Artery Scan 12/02/23 10:40 Pulse 87 12/02/23 10:40 Respiratory Rate 16 12/02/23 10:40 Respiratory Effort Normal, Non-Labored 12/02/23 10:46 Blood Pressure 158/83 H 12/02/23 10:40 Blood Pressure Position Sitting 12/02/23 10:40 Pulse Oximetry 100 12/02/23 10:40 Oxygen Delivery Method Room Air 12/02/23 10:40 Oxygen Flow Rate 0 12/02/23 10:40 Pain Level 10 12/02/23 11:17 Comment Ibu at 0830 12/02/23 10:40 Medical Decision Making 63-year-old female here 1 month after fall landing on outstretched left arm with pain in her posterior left shoulder, scapula and neck. Patient is neurologically intact. No tenderness over humerus or lateral shoulder. Patient is tender over her scapula and left posterior neck. CT of the cervical spine to assess for fracture was interpreted by radiology: No acute fracture. X-ray of the left scapula interpreted by radiology: No fracture. Results were reviewed with the patient. She was given Toradol IM for discomfort. Plan for discharge with outpatient follow-up with her PCP. Usual and customary discharge instructions were reviewed. Quality:[facility] Health Related Social Needs: No Data to Display PFSH All Active Problems Fall (Acute) Neck sprain (Acute) Acute pain of left shoulder (Acute) Constipation (Acute ~08/2023) Abdominal bloating (Acute ~08/2023) Irritable bowel syndrome without diarrhea (Acute ~08/2023) Colonoscopy refused (Acute) Diabetes mellitus (Chronic) Domestic concerns (Acute) Seasonal allergies (Acute) Unstable knee (Acute ~11/2021) 11/19/21 [facility] [place] Ortho, Dr Mejía, Bone Scan and labs planned Knee pain, right (Acute) Type 2 diabetes mellitus (Acute) Pre-diabetes (Acute) Routine medical exam (Acute) Thrush, oral (Acute) Lactic acidosis (Acute) Discharge planning issues (Acute) DVT prophylaxis (Acute) Acute asthma exacerbation (Acute) Torn rotator cuff (Acute) Medial epicondylitis of right elbow (Chronic) Status post debridement on 04/07/2019 Obesity (Acute 12/17/17) Carpal tunnel syndrome (Acute 07/26/13) Borderline personality disorder (Acute 12/04/16) Borderline diabetes (Chronic 12/04/16) 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 Replacement of total knee joint (04/29/11) Right Rotator Cuff Repair Bilateral-R:2006 L:2008 Plantar Fasciotomy (03/02/10) Right Pt states left foot Open Carpal Tunnel release (10/20/13) Bilateral Oophrectomy, Both 1989 & 1997 Hysterectomy (10/13/94) Repair of inguinal hernia (01/11/13) Right Reduction mammoplasty (10/13/03) Arthroplasty of knee (08/14/10) Right knee. W/Patellar Chondroplasty (R) Ankle (10/13/90) Family History Other Adopted Social History Smoking/Tobacco Use Status: Never Second Hand Exposure: Yes (daughter's house - few times a week. 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 Pets and animals: Yes (Pug - [place]) Pets and animals: dog(s) Current gender identity: female What is your relationship status?: How often do you talk on the phone with friends or family?: twice per week How often do you get together with friends or relatives?: once per week Panel score (0-1 are the most socially isolated patients): 1 What type of physical activity do you participate in: none Seatbelt use: always 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 Disposition Patient Disposition: Home Condition: Stable Discharge Details Clinical Impression: Acute pain of left shoulder, Neck sprain, Fall Primary Care Provider: Donna Portillo ED Provider: Vivek Bedoya Home Meds and New Rx's Prescriptions: Continued trazodone 100 mg tablet 100 mg PO HS Qty: 90 3RF ketoconazole 2 % cream 1 applic TP BID PRN (Reason: Rash under breasts) Qty: 60 2RF Rx Instructions: apply to rash under breasts BID prn empagliflozin 25 mg tablet 25 mg PO DAILY Qty: 90 3RF budesonide-formoterol [Symbicort] 160-4.5 mcg/actuation HFA aerosol inhaler 2 puff inhalation BID Qty: 10.2 12RF ipratropium-albuterol 0.5 mg-3 mg(2.5 mg base)/3 mL solution for nebulization 3 ml IH QID PRN (Reason: wheezing) Qty: 90 12RF (DME) Poise Pads Pad See Rx Instructions .Route Qty: 156 12RF Rx Instructions: Use up to 5 pads daily sumatriptan succinate 100 mg tablet See Rx Instructions PO .COMPLEX Qty: 10 6RF Rx Instructions: take 1 tab at onset of headache; if no relief, may repeat 1 tab after at least 2 hrs; max = 2 tabs/24 hrs PO venlafaxine 150 mg capsule,extended release 24hr See Rx Instructions .ROUTE .COMPLEX Qty: 180 3RF Dose Instruction: TAKE 1 CAPSULE BY MOUTH TWO TIMES A DAY Rx Instructions: TAKE 1 CAPSULE BY MOUTH TWO TIMES A DAY bupropion HCl 150 mg tablet sustained-release 12 hr See Rx Instructions .ROUTE .COMPLEX Qty: 180 3RF Dose Instruction: TAKE 1 TABLET BY MOUTH TWO TIMES A DAY Rx Instructions: TAKE 1 TABLET BY MOUTH TWO TIMES A DAY Discharge Instructions Instructions: Fall Prevention (ED), Shoulder Pain (ED), Acute Neck Pain (ED) Additional Instructions: Please take acetaminophen (tylenol) - 650mg every 6 hours by mouth as needed for pain. Please take ibuprofen over the counter. Take 600mg by mouth every 6 hours as needed for pain. Please avoid activities and positions that worsen pain. Please contact your primary care physician to arrange follow-up. Return to the ER immediately for any worsening or new concerning symptoms. Referrals: Donna Portillo NP [Primary Care Provider] -
[2023-12-02 12:44] VITALS: BP 138/76; PULSE 64; RESP 16; O2SAT 97
== END 2023-12-02 12:48 | disposition home or self-care (01) ==
PROVIDERS: Emergency Provider Student in an Organized Health Care Education/Training Program; PCP Nurse Practitioner
DX: M25.512 Pain in left shoulder (principal); S13.9XXA Sprain of joints and ligaments of unspecified parts of neck, initial encounter; E11.9 Type 2 diabetes mellitus without complications; W18.39XA Other fall on same level, initial encounter
CPT/HCPCS: 96372; 99284; 72125; 73010; J1885

== ENCOUNTER 2024-07-01 01:31 | Outpatient (CLI) | payer MEDICAID, SELFPAY ==
--- NOTE | 2024-07-01 07:40 | DI.CT_ITS ---
Exam(s) CT ABDOMEN PELVIS WO EXAM: CT ABDOMEN PELVIS WO CLINICAL HISTORY: L flank pain x 3-4 weeks R10.9 ABD PAIN. TECHNIQUE: Imaging Protocol: Axial computed tomography images with coronal and sagittal reformatted images were created and reviewed. Oral: / no COMPARISON: CT ABD PELVIS WITH CONTRAST from 01/19/2016 CT CHEST FOR PULMONARY EMBOLUS from 12/07/2017 FINDINGS: Lung Bases: No acute findings. Liver: Enlarged. Hepatic steatosis. No suspicious mass. Gallbladder and biliary tract: Status post cholecystectomy. No biliary dilation. Pancreas: Some fatty infiltration.. No abnormal calcifications or inflammatory process. Spleen: Normal. Kidneys: Normal size, contour and axis. No radiodense stones. No obstructive uropathy. No suspicious masses seen. Adrenal glands: No masses seen. Lymph nodes: Within normal limits. Vasculature: Abdominal aorta non-dilated. Soft tissues: Prior midline anterior abdominal wall hernia repair. Bladder: No wall thickening. No mass or calculi. Bowel: No obstruction or bowel wall thickening. Appendix normal. The colon is redundant. Normal jimenez ntity of stool. Peritoneal cavity: No ascites. No focal collection. No mesenteric inflammatory response. Reproductive organs: Status post hysterectomy. Bones: Degenerative changes lower lumbar spine. IMPRESSION: No acute abnormality in the abdomen or pelvis. RADIATION DOSE DELIVERED: Total DLP DATA REPOSITORY: All CT scans at this facility are submitted to the National Radiology Data Registry (NRDR) Dose Index Registry (DIR) with the [employer] (A[employer]). RADIATION OPTIMIZATION: All CT scans at this facility use at least one of these dose optimization te chniques: automated exposure control; mA and/or kV adjustment per patient size (includes targeted exa ms where dose is matched to clinical indication); or iterative reconstruction.
== END 2024-07-01 01:51 ==
LOC: DI 01:31
PROVIDERS: PCP Nurse Practitioner; Visit Provider Nurse Practitioner
DX: R10.9 Unspecified abdominal pain (principal)
CPT/HCPCS: 74176

== ENCOUNTER 2024-08-30 13:39 | Emergency (ER) | payer MEDICAID, SELFPAY ==
[2024-08-30 13:44] VITALS: BP 136/84; PULSE 88; RESP 16; TEMP 36.4; O2SAT 94
--- NOTE | 2024-08-30 14:29 | DI.RAD_ITS ---
Exam(s) XR CHEST 2V PA LATERAL EXAM: XR CHEST 2V PA LATERAL CLINICAL HISTORY: cough TECHNIQUE: 2D digital imaging was performed. Two views. COMPARISON: CR XR PORTABLE CHEST AP from 09/16/2019 FINDINGS: HEART: Normal size. Aorta: Not dilated. PULMONARY VASCULATURE: Normal. MEDIASTINUM: Unremarkable. LUNGS: Clear. PLEURAL SPACE: No pleural effusion or pneumothorax. BONE:Unremarkable for age. SOFT TISSUES: Unremarkable. IMPRESSION: No acute abnormality. DATA REPOSITORY: RADIATION DOSE DELIVERED:
--- NOTE | 2024-08-30 14:39 | ED.GENADUL_ITS ---
Discharge Plan Disposition Patient Disposition: Home Condition: Stable Discharge Details Clinical Impression: Bronchitis Primary Care Provider: Donna Portillo ED Provider: Capo Hand Home Meds and New Rx's Prescriptions: New amoxicillin-pot clavulanate 875-125 mg tablet 1 tab PO BID 5 Days Qty: 10 0RF azithromycin 250 mg tablet See Rx Instructions .ROUTE .COMPLEX Qty: 6 0RF Rx Instructions: For 250 mg dose pack: take 500 mg today (day 1), then 250 mg for 4 days (days 2-5) Continued ketoconazole 2 % cream 1 applic TP BID PRN (Reason: Rash under breasts) Qty: 60 2RF Rx Instructions: apply to rash under breasts BID prn empagliflozin 25 mg tablet 25 mg PO DAILY Qty: 90 3RF trazodone 100 mg tablet 100 mg PO HS Qty: 90 3RF budesonide-formoterol [Symbicort] 160-4.5 mcg/actuation HFA aerosol inhaler 2 puff inhalation BID Qty: 10.2 12RF lidocaine 4 % adhesive patch,medicated 1 patch topical TID PRN (Reason: pain left flank) Qty: 30 0RF venlafaxine 150 mg capsule,extended release 24hr See Rx Instructions .ROUTE .COMPLEX Qty: 180 3RF Dose Instruction: TAKE 1 CAPSULE BY MOUTH TWO TIMES A DAY Rx Instructions: TAKE 1 CAPSULE BY MOUTH TWO TIMES A DAY methylprednisolone [Medrol (Keshawn)] 4 mg tablets,dose pack See Rx Instructions PO PER PKG DIR Qty: 21 0RF Rx Instructions: PO PER PKG DIR ipratropium-albuterol 0.5 mg-3 mg(2.5 mg base)/3 mL solution for nebulization 3 ml IH QID PRN (Reason: wheezing) Qty: 90 12RF (DME) Poise Pads Pad See Rx Instructions .Route Qty: 156 12RF Rx Instructions: Use up to 5 pads daily sumatriptan succinate 100 mg tablet See Rx Instructions PO .COMPLEX Qty: 10 6RF Rx Instructions: take 1 tab at onset of headache; if no relief, may repeat 1 tab after at least 2 hrs; max = 2 tabs/24 hrs PO Discharge Instructions Instructions: Azithromycin (Systemic), Amoxicillin and Clavulanate, Bronchitis, Adult ED Additional Instructions: You were seen in the emergency department for your cough for the past 2 weeks. I think it is reasonable to trial antibiotics for bacterial bronchitis at this time, please take both the antibiotics as directed, use your inhaler as needed at home. Take Tylenol and ibuprofen as needed for aches and pains. Stay well- hydrated and nourished. Return to the emergency department for any acute worsening of respiratory distress or chest pain. Referrals: Donna Portillo [employer] [Primary Care Provider] - Discharge Data Discharge Date/Time-TO BE ENTERED AT DEPARTURE: 08/30/24 15:00 HPI General Date/Time Provider Initiated Documentation: 08/30/24 14:12 . HPI Narrative: 64 year-old female presents to ED today by POV/ambulating with a chief complaint of two weeks of congestion, cough, painful lungs. Quality described as cough, sore throat, mild SOB with asthma history, no radiation to fever/chills, profound shortness of breath, nausea/vomiting, headaches, diarrhea, chest pain on exertion. Severity is described as moderate. Palliating factors include at- home inhaler use, OTCs. Provoking factors include nothing specific. Events leading up to the incident/Associated Symptoms: Patient tested negative for Covid/Flu last week. Patient not anticoagulated. Related Data Home Medications ?Medication ?Instructions ?Recorded ?Confirmed empagliflozin 25 mg tablet 25 mg PO DAILY #90 tabs 08/06/22 08/30/24 ketoconazole 2 % topical cream 1 applic topical BID PRN Rash 08/06/22 08/30/24 under breasts #60 grams incontinence pad, liner, disp #156 ea 01/29/23 08/25/24 (Poise Pads) ipratropium 0.5 mg-albuterol 3 mg 3 ml inhalation QID PRN wheezing 01/29/23 08/30/24 (2.5 mg base)/3 mL nebulization #90 mL soln sumatriptan succinate 100 mg tablet See Rx Instructions PO .COMPLEX 08/05/23 08/30/24 #10 tabs budesonide-formoterol HFA 160 2 puff inhalation BID #10.2 grams 12/08/23 08/30/24 mcg-4.5 mcg/actuation aerosol inhaler (Symbicort) trazodone 100 mg tablet 100 mg PO HS #90 tab-caps 12/08/23 08/30/24 lidocaine 4 % topical patch 1 patch topical TID PRN pain left 06/16/24 08/30/24 flank #30 ea methylprednisolone 4 mg tablets in See Rx Instructions PO PER PKG DIR 08/25/24 1 10/30/23 a dose pack (Medrol (Keshawn)) #21 dose pk venlafaxine 150 mg See Rx Instructions .Route 08/25/24 08/30/24 capsule,extended release 24 hr .COMPLEX #180 caps amoxicillin 875 mg-potassium 1 tab PO BID 5 days #10 tabs 08/30/24 clavulanate 125 mg tablet azithromycin 250 mg tablet See Rx Instructions PO .COMPLEX #6 08/30/24 tabs Previous Rx's ?Medication ?Instructions ?Recorded empagliflozin 25 mg tablet 25 mg PO DAILY #90 tabs 08/06/22 ketoconazole 2 % topical cream 1 applic topical BID PRN Rash 08/06/22 under breasts #60 grams incontinence pad, liner, disp #156 ea 01/29/23 (Poise Pads) ipratropium 0.5 mg-albuterol 3 mg 3 ml inhalation QID PRN wheezing 01/29/23 (2.5 mg base)/3 mL nebulization #90 mL soln sumatriptan succinate 100 mg tablet See Rx Instructions PO .COMPLEX 08/05/23 #10 tabs budesonide-formoterol HFA 160 2 puff inhalation BID #10.2 grams 12/08/23 mcg-4.5 mcg/actuation aerosol inhaler (Symbicort) trazodone 100 mg tablet 100 mg PO HS #90 tab-caps 12/08/23 lidocaine 4 % topical patch 1 patch topical TID PRN pain left 06/16/24 flank #30 ea methylprednisolone 4 mg tablets in See Rx Instructions PO PER PKG DIR 08/25/24 a dose pack (Medrol (Keshawn)) #21 dose pk venlafaxine 150 mg See Rx Instructions .Route 08/25/24 capsule,extended release 24 hr .COMPLEX #180 caps amoxicillin 875 mg-potassium 1 tab PO BID 5 days #10 tabs 08/30/24 clavulanate 125 mg tablet azithromycin 250 mg tablet See Rx Instructions PO .COMPLEX #6 08/30/24 tabs Allergies Allergy/AdvReac Type Severity Reaction Status Date / Time aspirin AdvReac Intermediate vomiting Verified 08/30/24 13:47 CATS Allergy Intermediate Swelling/Ed Uncoded 08/30/24 13:47 sheree ENVIROMENTAL Allergy Mild COUGHING Uncoded 08/30/24 13:47 General Stated Complaint: RespSymp ULICES: 4 Review of Systems All systems reviewed & are unremarkable except as noted in HPI and below Exam Narrative Exam Narrative: GENERAL APPEARANCE: Well-nourished, non-toxic, awake and alert, atraumatic, no acute distress. SKIN: Warm, pink, dry, intact, without rashes/lesions/ulcerations. HEAD: Normocephalic, atraumatic, normal hair distribution for gender/age. EYES: Normal conjunctiva, no exudates on lids/lashes. ENT: Nares patent, no circumoral cyanosis, no facial swelling NECK: Supple, trachea midline, painless cervical ROM. LUNGS/CHEST: Lungs -mild rhonchi right greater than left, non-labored respirations, normal A/P diameter, symmetrical expansion, no chest wall deformity HEART (CV/PV): Regular rate and rhythm without murmur, no peripheral edema, no JVD. ABDOMEN: Soft, non-distended, no guarding. MSK: Normal ROM, no swelling/deformity to bilateral UEs or LEs, moving all extremities without weakness, no cyanosis, spine midline without tenderness, normal curvature. NEURO: Mental Status AAOx4 - alert to person, place, time, events No facial droop, no forehead involvement. Motor: No focal weakness - strength 5/5 in bilateral UEs and LEs, proximal and distal, symmetric. Sensory: sensation intact to light touch globally. Gait normal: patient ambulated without ataxia into ED room. PSYCH: euthymic, cooperative, pleasant, appropriate speech Course Vital Signs Vital signs: Vital Signs Temperature 36.4 C 08/30/24 13:44 Pulse 88 08/30/24 13:44 Respiratory Rate 16 08/30/24 13:44 Blood Pressure 136/84 08/30/24 13:44 Pulse Oximetry 94 08/30/24 13:44 Temperature 36.4 C 08/30/24 13:44 Temperature Source Oral 08/30/24 13:44 Pulse 88 08/30/24 13:44 Respiratory Rate 16 08/30/24 13:44 Blood Pressure 136/84 08/30/24 13:44 Blood Pressure Position Sitting 08/30/24 13:44 Pulse Oximetry 94 08/30/24 13:44 Oxygen Delivery Method Room Air 08/30/24 13:44 Oxygen Flow Rate 0 08/30/24 13:44 Pain Level 10 08/30/24 13:44 Medical Decision Making This dictation utilizes [id number] dictation software and may contain unedited grammatical errors. 64 year-old female presents to ED today by POV/ambulating with a chief complaint of two weeks of congestion, cough, painful lungs. Quality described as cough, sore throat, mild SOB with asthma history, no radiation to fever/chills, profound shortness of breath, nausea/vomiting, headaches, diarrhea, chest pain on exertion. Severity is described as moderate. Palliating factors include at- home inhaler use, OTCs. Provoking factors include nothing specific. Events leading up to the incident/Associated Symptoms: Patient tested negative for Covid/Flu last week. Patients' medical history: Diabetes mellitus, obesity, migraine, asthma. Family and social history: Noncontributory. Pertinent exam findings / vital signs include mild rhonchi right greater than left, benign cardiac exam, nontoxic. Differential / pathologies of concern include pneumonia, bronchitis, not hypoxic respiratory failure. Diagnostic studies of: -X-ray chest-no acute pathology. Interventions of: -Outpatient Rx for Augmentin/azithromycin for acute exacerbation of bronchitis, patient has been sick for 2 weeks reasonable to perform empiric antibiotics ED Course/Assessment/Plan: 64-year-old female presents with 2 weeks of respiratory illness, negative for COVID and flu last week, has no pneumonia or hypoxia. I recommend therapeutic dosing of Tylenol and ibuprofen as well as at home inhaler use and did provide azithromycin/Augmentin as it has been long enough for empiric antibiotics, stressed strict return criteria for increasing respiratory distress. Findings not consistent with hypoxic respiratory failure, sepsis, toxic illness. Disposition of bronchitis. Patient verbalized understanding of the plan and return to ED criteria and engaged in shared decision making. Medical Records Medical records reviewed: Yes I reviewed the patient's medical records. Imaging Data Radiologic Study: Attestation: I personally reviewed and interpreted this imaging study as follows: Imaging: X-Ray Radiologist's impression: EXAM: XR CHEST 2V PA LATERAL CLINICAL HISTORY: cough TECHNIQUE: 2D digital imaging was performed. Two views. COMPARISON: CR XR PORTABLE CHEST AP from 09/16/2019 FINDINGS: HEART: Normal size. Aorta: Not dilated. PULMONARY VASCULATURE: Normal. MEDIASTINUM: Unremarkable. LUNGS: Clear. PLEURAL SPACE: No pleural effusion or pneumothorax. BONE:Unremarkable for age. SOFT TISSUES: Unremarkable. IMPRESSION: No acute abnormality. Quality:SDOH Health Related Social Needs: No Data to Display PFSH All Active Problems (Updated 08/30/24 @ 14:40 by NANI Alatorre) Bronchitis (Acute) URI (upper respiratory infection) (Acute) Myofascial pain (Acute ~01/2024) 02/10/24 Orthopaedics Cervicalgia (Acute ~01/2024) 02/10/24 [place]opaed[place]18[place] [place] Spine wo contrast: changes of cervical spondylosis as reported on mri Acute neck pain (Acute ~01/2024) Constipation (Acute ~08/2023) Abdominal bloating (Acute ~08/2023) Irritable bowel syndrome without diarrhea (Acute ~08/2023) Colonoscopy refused (Acute) Diabetes mellitus (Chronic) Domestic concerns (Acute) Seasonal allergies (Acute) Unstable knee (Acute ~11/2021) 11/19/21 [facility] [place], Dr Mejía, Bone Scan and labs planned Knee pain, right (Acute) Type 2 diabetes mellitus (Acute) Pre-diabetes (Acute) Routine medical exam (Acute) Thrush, oral (Acute) Lactic acidosis (Acute) Discharge planning issues (Acute) DVT prophylaxis (Acute) Acute asthma exacerbation (Acute) Torn rotator cuff (Acute) Medial epicondylitis of right elbow (Chronic) Status post debridement on 04/07/2019 Obesity (Acute 12/17/17) Carpal tunnel syndrome (Acute 07/26/13) Borderline personality disorder (Acute 12/04/16) Borderline diabetes (Chronic 12/04/16) 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 Replacement of total knee joint (04/29/11) Right Rotator Cuff Repair Bilateral-R:2006 L:2008 Plantar Fasciotomy (03/02/10) Right Pt states left foot Open Carpal Tunnel release (10/20/13) Bilateral Oophrectomy, Both 1989 & 1997 Hysterectomy (10/13/94) Repair of inguinal hernia (01/11/13) Right Reduction mammoplasty (10/13/03) Arthroplasty of knee (08/14/10) Right knee. W/Patellar Chondroplasty (R) Ankle (10/13/90) Family History Other Adopted Social History Smoking/Tobacco Use Status: Never Second Hand Exposure: Yes (daughter's house - few times a week. 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 Pets and animals: Yes (Pug - [place]) Pets and animals: dog(s) Current gender identity: female What is your relationship status?: How often do you talk on the phone with friends or family?: twice per week How often do you get together with friends or relatives?: once per week Panel score (0-1 are the most socially isolated patients): 1 What type of physical activity do you participate in: none Seatbelt use: always 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 12/03/23 [facility] RO[facility]
[2024-08-30 14:53] VITALS: BP 149/104; PULSE 72; RESP 18; TEMP 36.4; O2SAT 96
== END 2024-08-30 15:00 | disposition home or self-care (01) ==
PROVIDERS: Emergency Provider Physician Assistant; PCP Nurse Practitioner
DX: J40 Bronchitis, not specified as acute or chronic (principal); R05.1 Acute cough; R07.0 Pain in throat; Z87.09 Personal history of other diseases of the respiratory system
CPT/HCPCS: 99283; 71046; 99284